=== PATIENT | female | born 1945 | race Caucasian/White ===

== ENCOUNTER 2024-11-12 13:38 | Outpatient (AMB) | payer MEDICARE, SELFPAY ==
--- OUTSIDE RECORDS SUMMARY | 2023-11-04 09:30 | XMS_ITS ---
Author Organization [facility], Address [address] [facility] [address] [place] [address] Care Team Providers Care Biometrics Technician Name Role Phone roberta daly Primary Care Provider Tammie Bond [phone] REASON FOR VISIT dementia Encounters Encounter Location Date Provider Diagnosis [facility], [address] [facility] [address] [place] [address] 11/04/2023 Tammie Delgadillo Plan Of Treatment No Information Progress Notes * Rylee ZAZUETAeDOB:[birth year] (79 yo F)Acc No.[id number]:11/04/2023 N60 Patient: Robert masseyCodi Provider: Tacos Delgadillo NP :1945 A ge:78 Y S ex:Female Date:11/04/2023 Address:[address] [place] [address] [id number] Pcp:roberta daly Subjective: * Chief Complaints: * D ementia * Electronic signature of Hero Delgadillo NP on 11/12/2024 at 02:55 PM EDT Sign off status: Pending * Provider: Tacos Delgadillo NP Date: 11/04/2023 Generated for Lotus [place]/Chen/eTransmitting on: 0 11/12/2024 02:55 PM EDT
--- OUTSIDE RECORDS SUMMARY | 2024-06-07 09:30 | XMS_ITS ---
Author Organization [facility], Address [address] [address] Care Team Providers Care Dependency Program Director Name Role Phone roberta daly Primary Care Provider Tammie Bond Unavailable [phone] Allergies Allergen (clinical drug ingredient) Drug/Non Drug Allergy documented on EMR Reaction Allergy Type Onset Date Status rosuvastatin cognitive impairment Drug Allergy Active penicillin V penicillin V potassium Unknown Drug Allergy Active REASON FOR VISIT Dementia/Alzheimers/discuss infusion- see Dr. Taylor also, Former Neurologist?, any Imaging?MR Brain pg 54,61 in chart Medications Medication SIG (Take, Route, Frequency, Duration) Notes Start Date End Date Status Vitamin D3 25 mcg tablet 1 tab(s) orally once a day; Duration: 30 days 05/24/2024 Active ramipril 10 mg capsule TAKE ONE CAPSULE BY MOUTH EVERY DAY; Duration: 90 Days Active meloxicam 15 mg tablet ; Duration: 30 Days Active donepezil 10 mg tablet 1 tab(s) orally o nce a day (at bedtime) Active traZODone 50 mg tablet as directed orally Active Social History Tobacco Use: Social History Observation Description Date Details (start date - stop date) Never Smoker NA - NA Social History General Social Info Question Answer Notes Tobacco Use: Do you smoke? never smoker Additional Details Category Social Info Options Details General Occupation: retired Alcohol: yes daily Caffeine: 2, cup(s) per da y Children: 2 Marital Status: Encounters Encounter Location Date Provider Diagnosis [facility], [address] [address] 06/07/2024 Tammie Delgadillo Plan Of Treatment No Information Progress Notes * Rylee ZAZUETAeDOB:[birth year] (79 yo F)Acc No.[id number]:06/07/2024 N60 Patient: Codi Garay Provider: Tacos Delgadillo NP :1945 A ge:79 Y S ex:Female Date:06/07/2024 Address:[address] [place] [address], [id number] Pcp:roberta daly Subjective: * Chief Complaints: * D ementia/Alzheimers/discuss infusion- see Dr. Taylor alsoFormer Neurologist?any Imaging?MR Brain pg 54,61 in chart * ROS: 1 0 systems including constitutional, neurological, eyes, ENT, cardiovascular, respiratory, GI, , musculoskeletal, and skin were reviewed. Negative unless otherwise specified in HPI. * Medical History: Hyperparathyroidism Hypothyroidism Spinal stenosis Osteoporosis Benign neoplasm of parathyroid gland Kidney disease Vascular dementia Medical History Verified * Surgical History: parathyroidectomy 2009 lumbar fusion 2016 cataract eye surgery lens implants Section x2 thyroid biopsy cervical discectomy 2022 Surgical History verified. * Hospitalization/Major Diagno stic Procedure: chest pain 06/09 Hospitalization Verified. * Family History: F ather: 60 yrs, diagnosed with Stroke. M other: 88 yrs, Heart attack, breast cancer, diagnosed with Cancer. 1 sister(s) . 2 son(s) . . F amily History Verified..? Any family hx of Neurological disorders?. * Social History: G eneral: T obacco Use D o you smoke? n ever smoker. A lcohol: yes daily. Marital Status: . Caffeine: 2, cup(s) per day. Occupation: retired. Children: 2. Social History Verified. * Medications: T akingmeloxicam 15 mg tablet ramipril 10 mg capsule TAKE ONE CAPSULE BY MOUTH EVERY DAY Vitamin D3(cholecalciferol) 25 mcg tablet 1 tab(s) orally once a day donepezil 10 mg tablet 1 tab(s) orally once a day (at bedtime) traZODone 50 mg tablet as directed orally Taking meloxicam 15 mg tablet Taking ramipril 10 mg capsule TAKE ONE CAPSULE BY MOUTH EVERY DAY Taking Vitamin D3(cholecalciferol) 25 mcg tablet 1 tab(s) orally once a day Taking donepezil 10 mg tablet 1 tab(s) orally once a day (at bedtime) Taking traZODone 50 mg tablet as directed orally * Allergies: p enicillin V potassiumrosuvastatin: cognitive impairment - Side EffectsyesAllergies Verified. Billing Information: * Procedure Codes: * Electronic signature of Hero Delgadillo NP on 11/12/2024 at 02:54 PM EDT Sign off status: Pending * Provider: Tacos Delgadillo NP Date: 06/07/2024 Generated for Lotus [place]/Chen/Jade on: 0 11/12/2024 02:54 PM EDT
--- OUTSIDE RECORDS SUMMARY | 2024-10-24 04:00 | XMS_ITS ---
Author Organization Elsi Castellano MD Address [address] [place] [phone] Care Team Providers Care Air Intelligence Specialist Name Role Phone Elsi Castellano Primary Care Provider REASON FOR VISIT 3m f/u HTN Encounters Encounter Location Date Provider Diagnosis Elsi Castellano MD [address] [place] [facility] [address] [place] [id number] 10/24/2024 Elsi Castellano Plan Of Treatment Next Appt Details Provider Name:Elsi Castellano , 01/29/2025 10:45:00 AM, [address] [place] [address], [place] [address], [place], [place], [phone], Progress Notes * Rylee DUMONTeDOB:[birth year] (79 yo F)Acc No.[id number]:10/24/2024 Progress Notes Patient: Robert Codi FLORES Provider: Kenan Castellano MD :1945 A ge:79 Y S ex:Female Date:10/24/2024 Address:[address] [place] [id number] Structured Data:Care team Ri sk Stratification : Medium Low Risk Subjective: * Chief Complaints: * 1 . 3m f/u HTN. * Medical History: Objective: * Vitals: Past Vitals:* 10/15/2024 Temp:97.3F, HR:61/min, BP:Si tting Right Arm: 122/72mm Hg, Wt:103lbs, BMI:19.14Index, Ht:61.5in, Oxygen sat %:98% * 07/18/2024 Temp:96.9F, HR:67/min, BP:Si tting Right Arm: 132/64mm Hg, Wt:97lbs, BMI:18.03Index, Ht:61.5in, Oxygen sat %:98% * 06/12/2024 Temp:96.8F, HR:63/min, Wt:96 lbs, BMI:17.84Index, Ht:61.5in, Oxygen sat %:99% Assessment: Plan: * Treatment: * Images: Billing Information: * Visit Code: * Procedure Codes: * Electronic signature of Jeane Castellano MD on 11/12/2024 at 02:56 PM EDT Sign off status: Pending * Provider: Kenan Castellano MD Date: 10/24/2024 Generated for Lotus [place]/Chen/Jade on: 11/12/2024 02:56 PM EDT
--- OUTSIDE RECORDS SUMMARY | 2024-11-07 04:30 | XMS_ITS ---
Author Organization Elsi Castellano MD Address [address] [phone] Care Team Providers Care Commodity Broker Name Role Phone Elsi Castellano Primary Care Provider [phone] Allergies Allergen (clinical drug ingredient) Drug/Non Drug Allergy documented on EMR Reaction Allergy Type Onset Date Status penicillin V Penicillin V Potassium Unknown Drug Allergy Active rosuvastatin Rosuvastatin Cognitive Impairment Drug Allergy 12/09/2021 Active Results Component Value Reference Range Notes Thyroxine (T4) Free, Direct- [id number] Reviewed date:11/09/2024 01:23:06 PM Interpretation: Performing Lab:[facility], [address] [place] [address], Phone - [phone], Director - MDJodry Notes/Report: T4,Free(Direct) 1.07 0.82-1.77 ng/dL Urinalysis, Complete-[id number] Reviewed date:11/09/2024 01:23:06 PM Interpretation: Performing Lab:[facility], [address] [place] [address], Phone - [phone], Director - MDJodry Notes/Report: Specific [place] 1.019 1.005-1.030 pH 6.0 5.0-7.5 Urine-Color Yellow Yellow Appearance Clear Clear WBC Esterase Negative Negative Protein Trace Negative/Trace Glucose Negative Negative Ketones Negative Negative Occult Blood Negative Negative Bilirubin Negative Negative Urobilinogen,Semi-Qn 0.2 0.2-1.0 mg/dL Nitrite, Urine Negative Negative Microscopic Examination Micr oscopic follows if indicated. Microscopic Examination See below: Micr oscopic was indicated and was performed. WBC None seen 0 - 5 /hpf RBC 0-2 0 - 2 /hpf Epithelial Cells (non renal) 0-10 0 - 10 /hpf Casts None seen None seen /lpf Bacteria None seen None seen/Few [id number] Reviewed date:11/09/2024 01:23:06 PM Interpretation: Performing Lab:[facility], [address] [place] [address], Phone - [phone], Director - [facility] Notes/Report: TSH 0.459 0.450-4.500 uIU/mL Vitamin D, 26-Kkfwafq-[id number] Reviewed date:11/09/2024 01:23:06 PM Interpretation: Performing Lab:[facility] [address], Phone - [phone], Director - [facility] Notes/Report: Vitamin D, 25-Hydroxy 51.5 30.0-100.0 ng/mL Vitamin D deficiency has been defined by the [place] of [employer] and an Endocrine Society practice guideline as a level of serum 25-OH vitamin D less than 20 ng/mL (1,2). The Endocrine Society went on to further define vitamin D insufficiency as a level between 21 and 29 ng/mL (2). 1. IOM ([place] of [employer]). 2010. Dietary reference intakes for calcium and D. [place]: The National Academies Press. 2. Ashlee MF, Rohini NC, Woo ZULUAGA, et al. Evaluation, treatment, and prevention of vitamin D deficiency: an Endocrine Society clinical practice guideline. JCEM. 2010; 96(7):1911-30. Albumin/Creatinine Ratio,Uri ne-[id number] Reviewed date:11/09/2024 01:23:06 PM Interpretation: Performing Lab:[facility] [address], Phone - [phone], Director - [facility] Notes/Report: Creatinine, Urine 146.8 Not Estab. mg/dL Albumin, Urine 41.5 Not Estab. ug/mL Alb/Creat Ratio 28 0-29 mg/g creat Normal: 0 - 29 Moderately increased: 30 - 300 Severely increased: >300 Comp. Metabolic Panel (14)-[id number] Reviewed date:11/09/2024 01:23:06 PM Interpretation: Performing Lab:[facility], [address] [place] [address], [place], Phone - [phone], Director - Deborah Notes/Report: Glucose 86 70-99 mg/dL BUN 23 8-27 mg/dL Creatinine 0.97 0.57-1.00 mg/dL eGFR 60 >59 mL/min/1.73 BUN/Creatinine Ratio 24 12-28 Sodium 142 134-144 mmol/L Potassium 4.0 3.5-5.2 mmol/L Chloride 103 96-106 mmol/L Carbon Dioxide, Total 20 20-29 mmol/L Calcium 10.1 8.7-10.3 mg/dL Protein, Total 7.4 6.0-8.5 g/dL Albumin 4.6 3.8-4.8 g/dL Globulin, Total 2.8 1.5-4.5 g/dL Bilirubin, Total 0.4 0.0-1.2 mg/dL Alkaline Phosphatase 121 44-121 IU/L AST (SGOT) 36 0-40 IU/L ALT (SGPT) 31 0-32 IU/L REASON FOR VISIT 3m f/u HTN, Hypertension, Controlled Medications Medication SIG (Take, Route, Frequency, Duration) Notes Start Date End Date Status Rosuvastatin Calcium 10 MG TAKE ONE TABLET BY MOUTH THREE TIMES A WEEK; Duration: 70 Not-Taking traZODone HCl 50 MG Oral; Duration: 60 Days Active Ramipril 10 MG 1 capsule Orally Onc e a day; Duration: 90 days Active amLODIPine Besylate 5 MG 1 tablet Orally Once a day; Duration: 30 days 02/13/2024 Active Belsomra 15 MG 1 tablet at bedtime Orally Once a day; Duration: 30 days 08/03/2024 12/01/2024 Active Biotin Active Vitamin C Active Sleep Aid Active Donepezil HCl 10 MG Oral; Duration: 45 Days Active Vitamin D 1000 UNIT 3 capsule Orally Onc e a day Active Calcium Active Magnesium 500 MG 1 tablet with a meal Orally Once a day Active Problems Problem Type SNOMED Code ICD Code Onset Dates Problem Status W/U Status Risk Notes Problem Dementia (disorder) (04055907) Dementia in other diseases classified elsewhere, severe, without behavioral disturbance, psychotic disturbance, mood disturbance, and anxiety (F02.C0) Active confirmed Vital Signs Temperature 96.0 degrees Fahrenheit 11/08/19 25 Blood pressure systolic 126 mm Hg 11/08/19 25 Blood pressure diastolic 60 mm Hg 025 Heart Rate 62 /min 11/07/2024 Height 61.5 in 11/07/2024 Weight 103 lbs 11/07/2024 BMI 19.14 kg/m2 11/07/2024 Oximetry 98 % 11/07/2024 Encounters Encounter Location Date Provider Diagnosis Elsi Castellano MD [address] [phone] 11/07/2024 Elsi Castellano Hypertensive chronic kidney disease with stage 1 through stage 4 chronic kidney disease, or unspecified chronic kidney disease I12.9 ; Chronic kidney disease, stage 3a N18.31 ; Alzheimer's disease with late onset G30.1 ; Dementia in other diseases classified elsewhere, severe, without behavioral disturbance, psychotic disturbance, mood disturbance, and anxiety F02.C0 ; Vascular dementia, mild, without behavioral disturbance, psychotic disturbance, mood disturbance, and anxiety F01.A0 ; Age-related osteoporosis without current pathological fracture M81.0 ; Hypothyroidism, unspecified E03.9 ; Mixed hyperlipidemia E78.2 ; Other spondylosis with myelopathy, cervical region M47.12 ; Spinal stenosis, lumbar region with neurogenic claudication M48.062 ; Other intervertebral disc displacement, lumbar region M51.26 and Vitamin D deficiency, unspecified E55.9 Assessments Encounter Date Diagnosis (ICD Code) Assessment Notes Treatment Notes Treatment Clinical Notes Section Notes 11/07/2024 Hypertensive chronic kidney disease with stage 1 through stage 4 chronic kidney disease, or unspecified chronic kidney disease (ICD-10 - I12.9) Improved. Her blood pressure is still fair. It is not ideally under 120 but improved compared to the prior levels. Can continue current medical therapy and hopefully with treatment of her back pain and increase mobility she will have a little bit lower blood pressure with increased activity 11/07/2024 Chronic kidney disease, stage 3a (ICD-10 - N18.31) Stable with estimated GFR in the 50s. Continue control of comorbidity of hypertension 11/07/2024 Alzheimer's disease with late onset (ICD-10 - G30.1) Has been getting infusions for disease modification however according to the the infusions have been discontinued due to complications with Aria. 11/07/2024 Dementia in other diseases classified elsewhere, severe, without behavioral disturbance, psychotic disturbance, mood disturbance, and anxiety (ICD-10 - F02.C0) As above 11/07/2024 Vascular dementia, mild, without behavioral disturbance, psychotic disturbance, mood disturbance, and anxiety (ICD-10 - F01.A0) Stable and unchanged. Continue control of comorbidity of hypertension. 11/07/2024 Age-related osteoporosis without current pathological fracture (ICD-10 - M81.0) She does not recall her last visit with endocrine. Status unclear 11/07/2024 Hypothyroidism, unspecified (ICD-10 - E03.9) Stable on prior labs as reviewed. Can recheck status 11/07/2024 Mixed hyperlipidemia (ICD-10 - E78.2) Stable on prior labs as reviewed. Can recheck status. Her LDL is overall 100. However risk-benefit ratio needs to be evaluated to see if combination drug therapy would be of any benefit to her given her other comorbidities 11/07/2024 Other spondylosis with myelopathy, cervical region (ICD-10 - M47.12) Stable at present. She did have a fall yet last week. She fell backwards and she thinks it there is because her hand slipped on the handrail rather than the cervical stenosis being responsible for this. She did not think that it was a loss of strength in her legs. At this point she just needs to be aware that the spinal stenosis and cord compression and myelomalacia may cause frequent and recurrent falls. If this happens then she will need reevaluation to see if surgical decompression is warranted 11/07/2024 Spinal stenosis, lumbar region with neurogenic claudication (ICD-10 - M48.062) She just had her injection yesterday and according to the she may be moving a little bit better. Can continue periodic injections and if these are not helpful then would need to consider surgical decompression 11/07/2024 Other intervertebral disc displacement, lumbar region (ICD-10 - M51.26) As above 11/07/2024 Vitamin D deficiency, unspecified (ICD-10 - E55.9) Fair control and prior labs as reviewed. Continue vitamin D supplementation 11/07/2024 Other This note was created with voice dictation recognition software and may contain errors of grammar and syntax. Also labs were reviewed with patient. Plan Of Treatment Next Appt Details Follow Up: 3 Months, Reason: Annual Provider Name:Elsi Castellano , 01/29/2025 10:45:00 AM, [address], [address], [place], [place], [phone], Progress Notes * Rylee DUMONTeDOB:[birth year] (79 yo F)Acc No.[id number]:11/07/2024 Progress Notes Patient: Codi PAYTON Provider: Kenan Castellano MD :1945 A ge:79 Y S ex:Female Date:11/07/2024 Address:[address] [place], [place] [id number] Structured Data:Care team Sudeep stallings Stratification : Medium Low Risk Subjective: * Chief Complaints: * 3 m f/u HTNHypertension, Controlled * HPI: H ypertension: 79 year old female presents with c/o Patient presents for follow-up of hypertension w hich is long-standing. C hronic kidney disease: Classification of renal failure is S tage 3. Glomerular filtration rate 2 4HR Urine calculated at: 42.? * Medical History: * Surgical History: P arathyroidectomy 12/19/2009lumbar fusion, L3-L4 04/07/2016cataract-lens implants Thyroid Biopsy 2019Cesarean Section 07/1973cesarean section 01/1976Anterior Discectomy, Cervical 05/2022 * Hospitalization/Major Diagno stic Procedure: C hest Pain 05/2021 * Family History: S pouse: alive 79 yrs, Healthy. F ather: , Stroke. at 60. M other: , Heart attack, breast cancer. at 88. S on(s): alive 49 yrs, Healthy1 son alive healthy 1977. S iblings: alive 83 yrs, Hypertension. M aternal aunt: 2 Aunts breast cancer 3 other Aunt Healthy. 1 sister(s) . 2 son(s) - healthy. . (AWV) Family history verified no changes since last. * Social History: T obacco Use: T obacco Control (Standard) T obacco use:: Nonsmoker.? D rugs/Alcohol: D rugs H ave you used drugs other than those for medical reasons in the past 12 months? N o Caffeine I ntake: 1 -2 cups per day Do you smoke marijuana?: Denies. Do you drink alcohol?: Yes., Daily. M iscellaneous: E xercise: yes, yoga. Occupation: Retired Physical Therapist. H ousg: Prabhu Arreola arital status: m arried D rug/Alcohol: A JONO-C (Standard) D id you have a drink containing alcohol in the past year?: Yes, How often did you have six or more drinks on one occasion in the past year?: Never (0 point), How many drinks did you have on a typical day when you were drinking in the past year?: 1 or 2 drinks (0 point), How often did you have a drink containing alcohol in the past year?: Daily or almost daily (4 points), Points: 4, Interpretation: Positive. * Medications: T akingMagnesium 500 MG Tablet 1 tablet with a meal Orally Once a day Calcium Vitamin D 1000 UNIT Capsule 3 capsule Orally Once a day Biotin Vitamin C Sleep Aid Donepezil HCl 10 MG Tablet Oral traZODone HCl 50 MG Tablet Oral Ramipril 10 MG Capsule 1 capsule Orally Once a day amLODIPine Besylate 5 MG Tablet 1 tablet Orally Once a day Belsomra 15 MG Tablet 1 tablet at bedtime Orally Once a day , stop date 12/01/2024Taking Magnesium 500 MG Tablet 1 tablet with a meal Orally Once a day Taking Calcium Taking Vitamin D 1000 UNIT Capsule 3 capsule Orally Once a day Taking Biotin Taking Vitamin C Taking Sleep Aid Taking Donepezil HCl 10 MG Tablet Oral Taking traZODone HCl 50 MG Tablet Oral Taking Ramipril 10 MG Capsule 1 capsule Orally Once a day Taking amLODIPine Besylate 5 MG Tablet 1 tablet Orally Once a day Taking Belsomra 15 MG Tablet 1 tablet at bedtime Orally Once a day , stop date 12/01/2024Not-Taking/PRNRosuvastatin Calcium 10 MG Tablet TAKE ONE TABLET BY MOUTH THREE TIMES A WEEK Medication List reviewed and reconciled with the patientNot-Taking/PRN Rosuvastatin Calcium 10 MG Tablet TAKE ONE TABLET BY MOUTH THREE TIMES A WEEK Medication List reviewed and reconciled with the patient * Allergies: P enicillin V PotassiumRosuvastatin: Cognitive Impairment - Side Effects - Criticality Low - Onset Date 12/09/2021no[Allergies Verified] Objective: * Vitals: T emp:96.0F, HR:62/min, BP:Standing Right Arm: 126/60mm Hg, Wt:103lbs, BMI:19.14Index, Ht:61.5in, Oxygen sat %:98%. Past Vitals:* 10/15/2024 Temp:97.3F, HR:61/min, BP:Si tting Right Arm: 122/72mm Hg, Wt:103lbs, BMI:19.14Index, Ht:61.5in, Oxygen sat %:98% * 07/18/2024 Temp:96.9F, HR:67/min, BP:Si tting Right Arm: 132/64mm Hg, Wt:97lbs, BMI:18.03Index, Ht:61.5in, Oxygen sat %:98% * 06/12/2024 Temp:96.8F, HR:63/min, Wt:96 lbs, BMI:17.84Index, Ht:61.5in, Oxygen sat %:99% * P ast Orders: Lab:Comp. Metabolic Panel (1 4)-[id number] * Collection Date 04/02/2024 02/13/2024 Collection Time 11:11 AM 11:26 AM Order Date 04/02/2024 02/13/2024 Glucose 90 (Ref Range: 70-99 mg/dL) 86 (Ref Range: 70-99 mg/dL) BUN 19 (Ref Range: 8-27 mg/dL) 21 (Ref Range: 8-27 mg/dL) Creatinine 1.00 (Ref Range: 0.57-1.00 mg/dL) 1.04 H (Ref Range: 0.57-1.00 mg/dL) BUN/Creatinine Ratio 19 (Ref Range: 12-28) 20 (Ref Range: 12-28) Sodium 140 (Ref Range: 134-144 mmol/L) 141 (Ref Range: 134-144 mmol/L) Potassium 4.5 (Ref Range: 3.5-5.2 mmol/L) 4.7 (Ref Range: 3.5-5.2 mmol/L) Chloride 103 (Ref Range: 96-106 mmol/L) 105 (Ref Range: 96-106 mmol/L) Carbon Dioxide, Total 24 (Ref Range: 20-29 mmol/L) 23 (Ref Range: 20-29 mmol/L) Calcium 9.4 (Ref Range: 8.7-10.3 mg/dL) 9.8 (Ref Range: 8.7-10.3 mg/dL) Protein, Total 6.7 (Ref Range: 6.0-8.5 g/dL) 6.5 (Ref Range: 6.0-8.5 g/dL) Albumin 4.5 (Ref Range: 3.8-4.8 g/dL) 4.2 (Ref Range: 3.8-4.8 g/dL) Globulin, Total 2.2 (Ref Range: 1.5-4.5 g/dL) 2.3 (Ref Range: 1.5-4.5 g/dL) Bilirubin, Total 0.7 (Ref Range: 0.0-1.2 mg/dL) 0.6 (Ref Range: 0.0-1.2 mg/dL) Alkaline Phosphatase 83 (Ref Range: 44-121 IU/L) 83 (Ref Range: 44-121 IU/L) AST (SGOT) 33 (Ref Range: 0-40 IU/L) 41 H (Ref Range: 0-40 IU/L) ALT (SGPT) 21 (Ref Range: 0-32 IU/L) 34 H (Ref Range: 0-32 IU/L) eGFR 58 L (Ref Range: >59 mL/min/1.73) 55 L (Ref Range: >59 mL/min/1.73) ???Lab:Vitamin [id number] (Order Date - 04/02/2024) (Collection Date & Time - 04/02/2024 11:11 AM)?ValueReference Range?Vitamin [id number] - pg/mL ???Lab:Thyroxine (T4) Free, Direct-[id number] (Order Date - 04/02/2024) (Collection Date & Time - 04/02/2024 11:11 AM)?ValueReference Range ?T4,Free(Direct)1.270.82-1.77 - ng/dL ???Lab:Folate (Folic Acid), Serum-[id number] (Order Date - 04/02/2024) (Collection Date & Time - 04/02/2024 11:11 AM)?ValueReference Range?Folate (Folic Acid), Serum8.8>3.0 - ng/mL ???Lab:TSH-[id number] (Order Date - 04/02/2024) (Collection Date & Time - 04/02/2024 11:11 AM)?ValueReference Range?TSH2.1000.450-4.500 - uIU/mL ???Lab:Vitamin D, 47-Bimgjeu-[id number] (Order Date - 04/02/2024) (Collection Date & Time - 1:11 AM)?ValueReference Range?Vitamin D, 25-Hcphusn05.6L30.0-100.0 - ng/mL * Lab:Urinalysis, Complete-003 772 * Collection Date 04/02/2024 02/13/2024 Collection Time 11:11 AM 11:26 AM Order Date 04/02/2024 02/13/2024 Specific [place] 1.022 (Ref Range: 1.005-1.030) 1.023 (Ref Range: 1.005-1.030) pH 6.0 (Ref Range: 5.0-7.5) 5.5 (Ref Range: 5.0-7.5) Urine-Color Yellow (Ref Range: Yellow) Yellow (Ref Range: Yellow) Appearance Clear (Ref Range: Clear) Clear (Ref Range: Clear) WBC Esterase Negative (Ref Range: Negative) Negative (Ref Range: Negative) Protein Trace (Ref Range: Negative/Trace) Trace (Ref Range: Negative/Trace) Glucose Negative (Ref Range: Negative) Negative (Ref Range: Negative) Ketones Negative (Ref Range: Negative) Negative (Ref Range: Negative) Occult Blood Negative (Ref Range: Negative) Negative (Ref Range: Negative) Bilirubin Negative (Ref Range: Negative) Negative (Ref Range: Negative) Urobilinogen,Semi-Qn 0.2 (Ref Range: 0.2-1.0 mg/dL) 0.2 (Ref Range: 0.2-1.0 mg/dL) Nitrite, Urine Negative (Ref Range: Negative) Negative (Ref Range: Negative) WBC None seen (Ref Range: 0 - 5 /hpf) 0-5 (Ref Range: 0 - 5 /hpf) RBC None seen (Ref Range: 0 - 2 /hpf) 0-2 (Ref Range: 0 - 2 /hpf) Epithelial Cells (non renal) None seen (Ref Range: 0 - 10 /hpf) 0-10 (Ref Range: 0 - 10 /hpf) Casts None seen (Ref Range: None seen /lpf) None seen (Ref Range: None seen /lpf) Bacteria None seen (Ref Range: None seen/Few) None seen (Ref Range: None seen/Few) Microscopic Examination See below: See below: * Lab:Albumin/Creatinine Ratio ,Urine-[id number] * Collection Date 04/02/2024 02/13/2024 Collection Time 11:11 AM 11:26 AM Order Date 04/02/2024 02/13/2024 Creatinine, Urine 103.1 (Ref Range: Not Estab. mg/dL) 111.2 (Ref Range: Not Estab. mg/dL) Albumin, Urine 23.3 (Ref Range: Not Estab. ug/mL) 31.0 (Ref Range: Not Estab. ug/mL) Alb/Creat Ratio 23 (Ref Range: 0-29 mg/g creat) 28 (Ref Range: 0-29 mg/g creat) * Lab:COMPLETE CBC WITH DIFF * Collection Date 03/29/2023 11/10/2022 09/20/2022 Collection Time 11:27 AM 09:30 AM 09:25 AM 11:22 AM Order Date 03/29/2023 11/10/2022 09/02/2022 03/23/2022 WBC 6.8 (Ref Range: (4.0-11.0) K/MM3) 5.3 (Ref Range: (4.0-11.0) K/MM3) 6.4 (Ref Range: (4.0-11.0) K/MM3) 6.0 (Ref Range: (4.0-11.0) K/MM3) RBC 4.32 (Ref Range: (4.20-5.40) M/MM3) 4.16 L (Ref Range: (4.20-5.40) M/MM3) 4.16 L (Ref Range: (4.20-5.40) M/MM3) 4.28 (Ref Range: (4.20-5.40) M/MM3) HGB 13.0 (Ref Range: (11.7-15.5) GM/DL) 12.7 (Ref Range: (11.7-15.5) GM/DL) 12.5 (Ref Range: (11.7-15.5) GM/DL) 12.9 (Ref Range: (11.7-15.5) GM/DL) HCT 40.4 (Ref Range: (35.7-45.8) %) 39.6 (Ref Range: (35.7-45.8) %) 39.9 (Ref Range: (35.7-45.8) %) 40.8 (Ref Range: (35.7-45.8) %) MCV 93.5 (Ref Range: (80.0-100.0) FL) 95.2 (Ref Range: (80.0-100.0) FL) 95.9 (Ref Range: (80.0-100.0) FL) 95.3 (Ref Range: (80.0-100.0) FL) MCH 30.1 (Ref Range: (27.0-34.0) PG) 30.5 (Ref Range: (27.0-34.0) PG) 30.0 (Ref Range: (27.0-34.0) PG) 30.1 (Ref Range: (27.0-34.0) PG) MCHC 32.2 L (Ref Range: (33.0-37.0) g/dL) 32.1 L (Ref Range: (33.0-37.0) g/dL) 31.3 L (Ref Range: (33.0-37.0) g/dL) 31.6 L (Ref Range: (33.0-37.0) g/dL) MPV 10.3 (Ref Range: (9.4-12.4) FL) 9.3 L (Ref Range: (9.4-12.4) FL) 9.9 (Ref Range: (9.4-12.4) FL) 10.0 (Ref Range: (9.4-12.4) FL) RDW-SD 44.5 (Ref Range: (<47.0) FL) 47.8 H (Ref Range: (<47.0) FL) 51.5 H (Ref Range: (<47.0) FL) 50.1 H (Ref Range: (<47.0) FL) ABS. NRBC 0.0 (Ref Range: K/MM3) 0.0 (Ref Range: K/MM3) 0.0 (Ref Range: K/MM3) 0.0 (Ref Range: K/MM3) Imm Gran 0.3 (Ref Range: %) 0.8 (Ref Range: %) 0.5 (Ref Range: %) 0.3 (Ref Range: %) Abs. Imm Gran 0.0 (Ref Range: K/MM3) 0.0 (Ref Range: K/MM3) 0.0 (Ref Range: K/MM3) 0.0 (Ref Range: K/MM3) PLT 242 (Ref Range: (150-460) K/MM3) 239 (Ref Range: (150-460) K/MM3) 240 (Ref Range: (150-460) K/MM3) 252 (Ref Range: (150-460) K/MM3) AUTOMATED NRBC 0.0 (Ref Range: #/100 WBC'S) 0.0 (Ref Range: #/100 WBC'S) 0.0 (Ref Range: #/100 WBC'S) 0.0 (Ref Range: #/100 WBC'S) NEUT 70.7 (Ref Range: (44-76) %) 54.0 (Ref Range: (44-76) %) 57.7 (Ref Range: (44-76) %) 62.3 (Ref Range: (44-76) %) LYMPH 19.9 (Ref Range: (15-43) %) 28.9 (Ref Range: (15-43) %) 25.5 (Ref Range: (15-43) %) 25.0 (Ref Range: (15-43) %) MONOCYTE 6.9 (Ref Range: (4.5-10.5) %) 10.7 H (Ref Range: (4.5-10.5) %) 11.9 H (Ref Range: (4.5-10.5) %) 8.4 (Ref Range: (4.5-10.5) %) EO 1.5 (Ref Range: (0-6) %) 4.7 (Ref Range: (0-6) %) 3.8 (Ref Range: (0-6) %) 3.0 (Ref Range: (0-6) %) LYMPH # 1.4 (Ref Range: (0.8-3.1) K/MM3) 1.5 (Ref Range: (0.8-3.1) K/MM3) 1.6 (Ref Range: (0.8-3.1) K/MM3) 1.5 (Ref Range: (0.8-3.1) K/MM3) BASO 0.7 (Ref Range: (0-2) %) 0.9 (Ref Range: (0-2) %) 0.6 (Ref Range: (0-2) %) 1.0 (Ref Range: (0-2) %) MONO# 0.5 (Ref Range: (0.4-0.9) K/MM3) 0.6 (Ref Range: (0.4-0.9) K/MM3) 0.8 (Ref Range: (0.4-0.9) K/MM3) 0.5 (Ref Range: (0.4-0.9) K/MM3) NEUT # 4.8 (Ref Range: (1.3-7.0) K/MM3) 2.9 (Ref Range: (1.3-7.0) K/MM3) 3.7 (Ref Range: (1.3-7.0) K/MM3) 3.8 (Ref Range: (1.3-7.0) K/MM3) EO # 0.1 (Ref Range: (0.0-0.4) K/MM3) 0.3 (Ref Range: (0.0-0.4) K/MM3) 0.2 (Ref Range: (0.0-0.4) K/MM3) 0.2 (Ref Range: (0.0-0.4) K/MM3) BASO # 0.1 (Ref Range: (0.0-0.1) K/MM3) 0.1 (Ref Range: (0.0-0.1) K/MM3) 0.0 (Ref Range: (0.0-0.1) K/MM3) 0.1 (Ref Range: (0.0-0.1) K/MM3) * Lab:LIPID PANEL W REFLEX TO DLDL * Collection Date 03/30/2023 09/20/2022 03/23/2022 Collection Time 08:55 AM 09:24 AM 11:22 AM 03:20 PM Order Date 03/30/2023 09/02/2022 03/23/2022 08/20/2021 LDL CHOLESTEROL, CALCULAT 91 (Ref Range: (0-130) MG/DL) 122 (Ref Range: (0-130) MG/DL) 126 (Ref Range: (0-130) MG/DL) 70 (Ref Range: (0-130) MG/DL) CHOLESTEROL, TOTAL 210 H (Ref Range: (<200) MG/DL) 241 H (Ref Range: (<200) MG/DL) 239 H (Ref Range: (<200) MG/DL) 190 (Ref Range: (<200) MG/DL) HDL CHOL 102 (Ref Range: (>39) MG/DL) 96 (Ref Range: (>39) MG/DL) 99 (Ref Range: (>39) MG/DL) 102 (Ref Range: (>39) MG/DL) NON HDL CHOLESTEROL (CALC 108 (Ref Range: (<160) MG/DL) 145 (Ref Range: (<160) MG/DL) 140 (Ref Range: (<160) MG/DL) 88 (Ref Range: (<160) MG/DL) TRIGLYCERIDES 86 (Ref Range: (<150) MG/DL) 115 (Ref Range: (<150) MG/DL) 71 (Ref Range: (<150) MG/DL) 89 (Ref Range: (<150) MG/DL) CHOLESTEROL/HDL RATIO (CA 2.1 (Ref Range: (<5.0)) 2.5 (Ref Range: (<5.0)) 2.4 (Ref Range: (<5.0)) 1.9 (Ref Range: (<5.0)) * Examination: G eneral Examination: GENERAL APPEARANCE: A ge appropriate, in no acute distress, thin. HEAD: atraumatic, normocephalic. EYES: sclera anicteric, extraocular movement full and smooth. HEART: r egular rate and rhythm, S1, S2 normal. LUNGS: c lear to auscultation bilaterally. EXTREMITIES: n o clubbing, cyanosis, or edema. NEUROLOGIC: a lert and oriented,gait Hunched forward as she walks. PSYCH: good eye contact, speech clear. ? Assessment: * Assessment: 1. H ypertensive chronic kidney disease with stage 1 through stage 4 chronic kidney disease, or unspecified chronic kidney disease - I12.9 (Primary) 2 . C hronic kidney disease, stage 3a - N18.31 3 . A lzheimer's disease with late onset - G30.1 4 . D ementia in other diseases classified elsewhere, severe, without behavioral disturbance, psychotic disturbance, mood disturbance, and anxiety - F02.C0 5 . V ascular dementia, mild, without behavioral disturbance, psychotic disturbance, mood disturbance, and anxiety - F01.A0 6 . A ge-related osteoporosis without current pathological fracture - M81.0 7 . H ypothyroidism, unspecified - E03.9 8 . M ixed hyperlipidemia - E78.2 9 . O ther spondylosis with myelopathy, cervical region - M47.12 1 0. S aguilar stenosis, lumbar region with neurogenic claudication - M48.062 1 1. O ther intervertebral disc displacement, lumbar region - M51.26 & #160; 1 2. V itamin D deficiency, unspecified - E55.9 Plan: * Treatment: Value Reference Range S pecific [place] 1.019 1.005-1.030 - * p H 6.0 5.0-7.5 - * U rine-Color Yellow Yellow - * A ppearance Clear Clear - * W BC Esterase Negative Negative - * P rotein Trace Negative/Trace - * G lucose Negative Negative - * K etones Negative Negative - * O ccult Blood Negative Negative - * B ilirubin Negative Negative - * U robilinogen,Semi-Qn 0.2 0.2-1.0 - mg/dL * N itrite, Urine Negative Negative - * W BC None seen 0 - 5 - /hpf * R BC 0-2 0 - 2 - /hpf * E pithelial Cells (non renal) 0-10 0 - 10 - /hp f * C asts None seen None seen - /lpf * B acteria None seen None seen/Few - * M icroscopic Examination See below: - * This lab was reviewed by Joel Castellano on 11/09/2024 at 13:23 PM EDT ?LAB: Albumin/Creatinine Ratio,[id number]* Value Reference Range C reatinine, Urine 146.8 Not Estab. - mg/dL * A lbumin, Urine 41.5 Not Estab. - ug/mL * A lb/Creat Ratio 28 0-29 - mg/g creat * This lab was reviewed by Joel Castellano on 11/09/2024 at 13:23 PM EDT ?LAB: Comp. Metabolic Panel ([id number]* Value Reference Range G lucose 86 70-99 - mg/dL * B UN 23 8-27 - mg/dL * C reatinine 0.97 0.57-1.00 - mg/dL * B UN/Creatinine Ratio 24 12-28 - * S odium 142 134-144 - mmol/L * P otassium 4.0 3.5-5.2 - mmol/L * C hloride 103 96-106 - mmol/L * C arbon Dioxide, Total 20 20-29 - mmol/L * C alcium 10.1 8.7-10.3 - mg/dL * P rotein, Total 7.4 6.0-8.5 - g/dL * A lbumin 4.6 3.8-4.8 - g/dL * G lobulin, Total 2.8 1.5-4.5 - g/dL * B ilirubin, Total 0.4 0.0-1.2 - mg/dL * A lkaline Phosphatase 121 44-121 - IU/L * A ST (SGOT) 36 0-40 - IU/L * A LT (SGPT) 31 0-32 - IU/L * e GFR 60 >59 - mL/min/1.73 * This lab was reviewed by Joel Castellano on 11/09/2024 at 13:23 PM EDT Clinical Notes: Improved. Her blood pressure is still fair. It is not ideally under 120 but improved compared to the prior levels. Can continue current medical therapy and hopefully with treatment ofher back pain and increase mobility she will have a little bit lower blood pressure with increased a ctivity??2.?Chronic kidney disease, stage 3a?LAB: Urinalysis, Complete-[id number]* Value Reference Range S pecific [place] 1.019 1.005-1.030 - * p H 6.0 5.0-7.5 - * U rine-Color Yellow Yellow - * A ppearance Clear Clear - * W BC Esterase Negative Negative - * P rotein Trace Negative/Trace - * G lucose Negative Negative - * K etones Negative Negative - * O ccult Blood Negative Negative - * B ilirubin Negative Negative - * U robilinogen,Semi-Qn 0.2 0.2-1.0 - mg/dL * N itrite, Urine Negative Negative - * W BC None seen 0 - 5 - /hpf * R BC 0-2 0 - 2 - /hpf * E pithelial Cells (non renal) 0-10 0 - 10 - /hp f * C asts None seen None seen - /lpf * B acteria None seen None seen/Few - * M icroscopic Examination See below: - * This lab was reviewed by Joel Castellano on 11/09/2024 at 13:23 PM EDT ?LAB: Albumin/Creatinine Ratio,Urine-[id number]* Value Reference Range C reatinine, Urine 146.8 Not Estab. - mg/dL * A lbumin, Urine 41.5 Not Estab. - ug/mL * A lb/Creat Ratio 28 0-29 - mg/g creat * This lab was reviewed by Joel Castellano on 11/09/2024 at 13:23 PM EDT ?LAB: Comp. Metabolic Panel ([id number]* Value Reference Range G lucose 86 70-99 - mg/dL * B UN 23 8-27 - mg/dL * C reatinine 0.97 0.57-1.00 - mg/dL * B UN/Creatinine Ratio 24 12-28 - * S odium 142 134-144 - mmol/L * P otassium 4.0 3.5-5.2 - mmol/L * C hloride 103 96-106 - mmol/L * C arbon Dioxide, Total 20 20-29 - mmol/L * C alcium 10.1 8.7-10.3 - mg/dL * P rotein, Total 7.4 6.0-8.5 - g/dL * A lbumin 4.6 3.8-4.8 - g/dL * G lobulin, Total 2.8 1.5-4.5 - g/dL * B ilirubin, Total 0.4 0.0-1.2 - mg/dL * A lkaline Phosphatase 121 44-121 - IU/L * A ST (SGOT) 36 0-40 - IU/L * A LT (SGPT) 31 0-32 - IU/L * e GFR 60 >59 - mL/min/1.73 * This lab was reviewed by Joel Castellano on 11/09/2024 at 13:23 PM EDT Clinical Notes: Stable with estimated GFR in the 50s. Continue control of comorbidity of hypertension??3.?Alzheimer's disease with late onset? Clinical Notes: Has been getting infusions for disease modification however according to the the infusions have been discontinued due to complications with Aria.??4.?Dementia in other diseases classified elsewhere, severe, without behavioral disturbance, psychotic disturbance, mood disturbance, and anxiety? Clinical Notes: As above??5.?Vascular dementia, mild, without behavioral disturbance, psychotic disturbance, mood disturbance, and anxiety? Clinical Notes: Stable and unchanged. Continue control of comorbidity of hypertension.??6.?Age-related osteoporosis without current pathological fracture ? Clinical Notes: She does not recall her last visit with endocrine. Status unclear??7.?Hypothyroidism, unspecified?LAB: Thyroxine (T4) Free, Direct-[id number]* Value Reference Range T 4,Free(Direct) 1.07 0.82-1.77 - ng/dL * This lab was reviewed by Joel Castellano on 11/09/2024 at 13:23 PM EDT ?LAB: TSH-[id number]* Value Reference Range T SH 0.459 0.450-4.500 - uIU/mL * This lab was reviewed by Joel Castellano on 11/09/2024 at 13:23 PM EDT Clinical Notes: Stable on prior labs as reviewed. Can recheck status??8.?Mixed hyperlipidemia? Clinical Notes: Stable on prior labs as reviewed. Can recheck status. Her LDL is overall 100. However risk-benefit ratio needs to be evaluated to see if combination drug therapy would be of any benefit to her given her other comorbidities??9.?Other spondylosis with myelopathy, cervical region? Clinical Notes: Stable at present. She did have a fall yet last week. She fell backwards and she thinks it there is because her hand slipped on the handrail rather than the cervical stenosis being responsible for this. She did not think that it was a loss of strength in her legs. At this point she just needs to be aware that the spinal stenosis and cord compression and myelomalacia may cause frequent and recurrent falls. If this happens then she will need reevaluation to see if surgical decompression is warranted??10.?Spinal stenosis, lumbar region with neurogenic claudication? Clinical Notes: She just had her injection yesterday and according to the she may be movinga little bit better. Can continue periodic injections and if these are not helpful then would need to consider surgical decompression??11.?Other intervertebral disc displacement, lumbar region? Clinical Notes: As above??12.?Vitamin D deficiency, unspecified?LAB: Vitamin D, 59-Cunzila-[id number]* Value Reference Range V itamin D, 25-Hydroxy 51.5 30.0-100.0 - ng/mL * This lab was reviewed by Joel Castellano on 11/09/2024 at 13:23 PM EDT Clinical Notes: Fair control and prior labs as reviewed. Continue vitamin D supplementation? 13.?Others? Clinical Notes: This note was created with voice dictation recognition software and may contain errors of grammar and syntax. Also labs were reviewed with patient.?? * Procedure Codes: G 9744 PATIENT NOT ELIG D/T ACTIVE DX [id number] MOST RECENT SYSTOLIC BP < 140MM [id number] MOST RECENT DIASTOLIC BP < 90MM [id number] Pt scrn tbco id as non user * Preventive Medicine: Counseling: B Robert Management: LIFESTYLE RECOMMENDATION: Violeta chester education regarding hypertension PHYSICAL ACTIVITY RECOMMENDATION: Helena gomez encouragement to exercise Immunizations: T daP Last Tdap was administered 0 07/21/2012 P CV 13 (Prevnar) Last PCV13 was administered 0 10/31/2014 P PV 23 (pneumococcal) Last PPV23 was administered 1 05/10/2010 T etanus Last Tetanus was administered 0 06/11/2005 I nfluenza Last Influenza was administered 0 12/10/2022 Screenings: B reast Cancer Screening: Date of most recent screenin 11/14/2023 C olon cancer screening Colorectal screening: C olonoscopy Provider recommendation: 5 years Date of most recent screenin 05/18/2019 O steoporosis Screening: Date of most recent screenin 03/30/2022 * Follow Up: 3 Months (Reason: Annual) * Images: Billing Information: * Visit Code: 32347 Office Visit, Est Pt., Level 4. G2211 Complex E/M Visit. * Procedure Codes: G9744 PATIENT NOT ELIG D/T ACTIVE DX HTN. G8752 MOST RECENT SYSTOLIC BP < 140MM HG. G8754 MOST RECENT DIASTOLIC BP < 90MM HG. G9903 Pt scrn tbco id as non user. * Sign off status: Completed true * Provider: Kenan Castellano MD Date: 0 11/07/2024 Generated for Lotus [place]/Chen/eTransmitting on: 0 11/12/2024 02:55 PM EDT History and Physical Notes * HPI (History of Present Illness) Category Sub-Category Detail Notes Category Not es Hypertension Patient presents for follow-up of hypertension which is long-standing Chronic kidney disease Classification of renal failure is Stage 3 Glomerular filtration rate 24HR Urine ca lculated at: 42 Examination Category Sub-Category Detail Notes Category Not es General Examination GENERAL APPEARANCE: Age appr opriate, in no acute distress, thin HEAD: atraumatic, normocep halic EYES: sclera anicteric, ex traocular movement full and smooth HEART: regular rate and rhy thm, S1, S2 normal LUNGS: clear to auscultatio n bilaterally NEUROLOGIC: alert and oriented, gait Hunched forward as she walks EXTREMITIES: no clubbing, cyanosi s, or edema PSYCH: good eye contact, sp eech clear
--- NOTE | 2024-11-12 14:35 | A.SPINEOV_ITS ---
Vital Signs 11/12/24 14:39 Height 5 ft 2 in Weight 108 lb BMI 19.8 Intake Visit Reasons: Back pain Intake Note: Mrs. Dumont is here today c/o low back pain that radiates to the legs. Business Services Manager Required: No Allergies penicillin V Allergy (Verified 11/12/24 14:39) Unknown rosuvastatin Allergy (Verified 11/12/24 14:39) Unknown Assessment & Plan Assessment & Plan (1) Lumbago with sciatica, left side: Code(s): M54.42 - Lumbago with sciatica, left side Category: Medical Plan Codi is a pleasant 79 year old female who comes in today as a self referral. She reports that she was recommended to our office by 1 of her friends who had surgery with us in did very well afterwards. She states that she has had fairly severe low back pain and occasional left posterior thigh pain for the past 1 year. She does have a past pertinent medical history of a L3-[address] completed by Dr[address] Reaves at [facility]. She reports that thankfully, today, she has no low back pain and no leg pain. About 1 week ago she had a cortisone injection near L5, and reports almost complete resolution of her pain after this injection. She is very satisfied overall with the injection. Given this, prior to the injection she states that she had fairly severe axial low back pain which significantly worsened with ambulation. In addition to this she had a fairly severe shooting pain down her left lower extremity. Thankfully neither of these are present today as previously stated. She has been referred to physical therapy, however states she has not as of yet started. She reports that she does not presently take any pain control medications at home, but has utilized aakp-foa-nmcbsig pain medications in the past. She does report some numbness over her left toes, however reports that she is unsure if this is related to an underlying vascular issue which she has. It should be noted that the patient has a cognitive impairment which prevents thorough recount of PMHx. Her accompanied her to this visit today but also struggled to provide PMHx aside from informing me that the patient has hypertension. PMH: HTN, Hx of L3-[address] Reaves about 12 years ago. Hyperlipidemia. Social hx: Patient does not smoke, reports no substance use. Medications: See [employer] list. Allergies: NKDA Physical exam: The patient has full 5/5 strength of her upper and lower extremities. She ambulates well but does so slowly his slightly hunched over ambulating. She uses no assistive devices to ambulate. She has no significant sensational deficits reported on light touch examination. Her reflexes are 2+ intact diffusely. (-) bilateral straight leg raise (-) Carcamo's (-) clonus. Imaging review: MRI of the lumbar spine completed at [facility] 10/02/2024 shows evidence of previous fusion at L3-4. There is notable posterior disc bulging at L1-2, L2-3, and L4-5. At L1-2, and L2-3 there is severe central canal and bilat eral foraminal stenosis at L4-5 the disc herniation seen at this level his causing severe right-sided foraminal stenosis and moderate-severe right-sided central canal stenosis near the lateral recess. Impression: Codi is a pleasant 79-year-old female who comes in today for evaluation of axial low back pain and shooting pain into her left posterior lower extremity. Thankfully, she reports that her pain has essentially completely resolved since a injection near L5 completed at [facility] last week. Given this, she does have fairly severe degeneration and nerve compression above and below her surgical construct. I believe that the patient would be best served by continuing to pursue conservative measures via physical therapy and cortisone injections at this time . Even when considering the severe compression seen on imaging, the patient's clinical presentation today on examination does not appear to be reflective of this. In the absence of pain or neurological deficits, I think she should simply follow up with us again in the future if conservative measures fail to provide pain / symptom relief. We may consider surgical intervention if this becomes the case, but will need to obtain her PCP medical records if we do re-evalaute her. Thank you for allowing us to care for your patient. The total time spent with this visit with this patient was 45 minutes reviewing history, physical exam, MRI imaging review, and implementation of treatment plan or further diagnostic testing Jr Cote MD,PhD [facility] Coding Level of Care Code New Pt Level 4 (51115) Diagnoses Lumbago with sciatica, left side M54.42
[2024-11-12 14:39] VITALS: BMI 19.8
--- OUTSIDE RECORDS SUMMARY | 2024-11-12 14:55 | XMS_ITS | Encounter Summary ---
Author Organization [facility] Address [address] [place] [phone] Phone Care Team Providers Care Piping Drafter Name Role Phone Roberta Castellano MD Primary Care Provider [phone] Encounter Details Date Type Department Care Team (Late st Contact Info) Description 12/10/2019 Procedure Pass [address] [address] Social History Tobacco Use Types Packs/Day Years Used Date Smoking Tobacco: Former Cigarettes Q uit: 1980 Smokeless Tobacco: Never Alcohol Use Standard Drinks/Week Comments Yes 7 (1 standard drink = 0.6 oz pur e alcohol) Comments Unknown Sex and Gender Information Value Date Recorded Sex Assigned at Female 10/30/2019 8:50 AM EDT Legal Sex Female 10:31 AM EDT Gender Identity Female 10/30/2019 8:50 AM EDT Sexual Orientation Straight 10/30/2019 8: 50 AM EDT documented as of this encounter Plan of Treatment Upcoming Encounters Date Type Department Care Team (Late st Contact Info) Description 10/16/2024 Procedure Pass [facility] [address] [place] [address] 11/24/2024 11:00 AM EDT Appointment [facility] [address] [place] [address] Shelly Lee PA-C [address] [place] [address] [email or web address] 01/14/2025 9:00 AM EDT Telemedicine [facility] [place]rology [address] [place] [address], [address], [address] [place] [address] Ellen Valencia MD, PhD [address] [place] [phone] [email or web address] documented as of this encounter Visit Diagnoses Not on filedocumented in this encounter Care Teams Piping Drafter Relationship Specialty Start Date End Date Roberta Castellano MD [address] [place] [phone] [email or web address] PCP - General Internal Medicine 09/06/17 documented as of this encounter Additional Source Comments The information contained in this document represents components of the legal health record. It is not the complete legal health record.[facility]
--- OUTSIDE RECORDS SUMMARY | 2024-11-12 14:55 | XMS_ITS | Encounter Summary ---
Author Organization [facility] Address [address] [place] [phone] Phone Care Team Providers Care Clicking Machine Operator Name Role Phone Roberta Castellano MD Primary Care Provider Reason for Referral * - Closed Specialty Diagnoses / Procedures Referred By Norah dover Referred To Contact Radiology Diagnoses Nontoxic multinodular goiter Procedures US Thyroid Aspiration/FNA US Thyroid Biopsy Clay Sen DO Phone: tel: fax: [email or web address] Referral ID Status Reason Start Date Expiration Date Visits Re quested Visits Authorized [id number] Closed 12/10/2019 12/09/2020 1 1 Encounter Details Date Type Department Care Team (Latest Contact Info) Description 02/21/2020 Ancillary Orders [facility] [address] [place] [phone] Clay Sen DO [address] [place] [phone] [email or web address] Nontoxic multinodular goiter Social History Tobacco Use Types Packs/Day Years [...] st Contact Info) Description 10/16/2024 Procedure Pass [facility] [address] [place] [address] 11/24/2024 11:00 AM EDT Appointment [facility] [address] [place] [address] Shelly Lee PA-C [address] [place] [address] [email or web address] 01/14/2025 9:00 AM EDT Telemedicine [facility] [place] of [place] [address] [place] [address], [address] [place] [address] Ellen Valencia MD, PhD [address] [place] [phone] [email or web address] documented as of this encounter Results * US Thyroid Aspiration/FNA (12/26/2019 12:40 PM EDT) Narrative SYSTEMGENERATED, DOCUMENTATION - 02/21/2020 9:19 AM EST Performed by an lift mechanic with Intraprocedural Ultrasound images obtained for archival purposes. Please see N otes tab for findings and procedure details. us Clay Sen DO IMG IR NEURO Final Result documented in this encounter Visit Diagnoses Diagnosis Nontoxic multinodular goiter Nontoxic multinodular goiter documented in this encounter Care Teams Clicking Machine Operator Relationship Specialty Start Date End Date Roberta Castellano MD [address] [place] [phone] [email or web address] PCP - General Internal Medicine 09/06/17 documented as of this encounter Additional Source Comments The information contained in this document represents components of the legal health record. It is not the complete legal health record.[facility]
--- OUTSIDE RECORDS SUMMARY | 2024-11-12 14:55 | XMS_ITS | Patient Health Record ---
Author Organization Elsi Castellano MD Address [address] [place] [id number] Care Team Providers Care Green Marketing Specialist Name Role Phone Elsi Castellano Primary Care Provider Alessandra Pat Unavailable [phone] Allergies Allergen (clinical drug ingredient) Drug/Non Drug Allergy documented on EMR Reaction Allergy Type Onset Date Status penicillin V Penicillin V Potassium Unknown Drug Allergy Active rosuvastatin Rosuvastatin Cognitive Impairment Drug Allergy 12/09/2021 Active Results Component Value Reference Range Notes CT ABDOMEN PELVIS WO CONTRAS T Reviewed date:06/18/2024 04:47:18 PM Interpretation: Performing Lab: Notes/Report: Thyroxine (T4) Free, Direct- [id number] Reviewed date:11/09/2024 01:23:06 PM Interpretation: Performing Lab:[facility], [address] [facility], Phone - [phone], Director - Deborah Notes/Report: T4,Free(Direct) 1.07 0.82-1.77 ng/dL Urinalysis, Complete-[id number] Reviewed date:11/09/2024 01:23:06 PM Interpretation: Performing Lab:[facility], [address] [place] [address], Phone - [phone], Director - Deborah Notes/Report: Specific [place] 1.019 1.005-1.030 pH 6.0 5.0-7.5 Urine-Color Yellow [...] seen /lpf Bacteria None seen None seen/Few [id number] Reviewed date:11/09/2024 01:23:06 PM Interpretation: Performing Lab:[facility] [place], [address] [place] [address], Phone - [phone], Director - [facility] Notes/Report: TSH 0.459 0.450-4.500 uIU/mL Vitamin D, 00-[id number] Reviewed date:11/09/2024 01:23:06 PM Interpretation: Performing Lab:[facility] [place], [address] [place] [address], Phone - [phone], Director - [facility] Notes/Report: Vitamin D, 25-Hydroxy 51.5 30.0-100.0 ng/mL Vitamin D deficiency has been defined by the [place] of [employer] and an Endocrine Society practice guideline as a level of serum 25-OH vitamin D less than 20 ng/mL (1,2). The Endocrine Society went on to further define vitamin D insufficiency as a level between 21 and 29 ng/mL (2). 1. IOM ([place] of [employer]). 2010. Dietary reference intakes for calcium and D. [place]: The National Academies Press. 2. Ashlee MF, Rohini [place], Woo ZULUAGA, et al. Evaluation, treatment, and prevention of vitamin D deficiency: an Endocrine Society clinical practice guideline. JCEM. 2010; 96(7):1911-30. Albumin/Creatinine Ratio,Uri ne-[id number] Reviewed date:11/09/2024 01:23:06 PM Interpretation: Performing Lab:[facility] [place], [address] [place] [address], [place], Phone - [phone], Director - [facility] Notes/Report: Creatinine, Urine 146.8 Not Estab. mg/dL Albumin, Urine 41.5 Not Estab. ug/mL Alb/Creat Ratio 28 0-29 mg/g creat Normal: 0 - 29 Moderately increased: 30 - 300 Severely increased: >300 Comp. Metabolic Panel (14)-3 [id number] Reviewed date:11/09/2024 01:23:06 PM Interpretation: Performing Lab:[facility], [address], [place], Phone - [phone], Director - Deborah Notes/Report: Glucose 86 70-99 [...] 0-40 IU/L ALT (SGPT) 31 0-32 IU/L MR Lumbar Reviewed date:10/05/2024 03:42:09 PM Interpretation: Performing Lab: Notes/Report: Original Report EXAM: MRI LUMBAR SPINE WITHOUT CONTRAST CLINICAL INFORMATION: Lumbar spinal stenosis, neurogenic claudication. TECHNICAL INFORMATION: 1. Sagittal and axial T1. 2. Sagittal and axial T2. 3. Sagittal STIR. SEDATION: None. COMPARISON: No existing relevant imaging immediately accessible. INTERPRETATION: Distal cord maintains normal caliber and intrinsic signal, termination is at L1. There are no spinal canal collections or intradural masses. Lumbar dextroconvexity with L3-4 TLIF surgery. Ferromagnetic artifact of paired pedicle screws and interbody device in expected locations. Preserved vertebral vertebral body heights with prominent anterior discosteophyte at L4-5, lesser changes L3-4 through L1-2. There is 2-3 mm degenerative anterolisthesis at L2-3. No evidence of marrow replacing processes. L5-S1: Mild disc degeneration with posterior bulge, hypertrophy and mild left facet joint arthrosis. No significant spinal canal and mildly narrowed left neural foramen. No neural impingement. L4-5: Inferior adjacent segment. Severe disc degeneration with heterogeneous and cranially dissecting right subarticular 6 x 14 mm disc extrusion (axial images 27-28 series 8; sagittal image 9 series 5). Changes are compounded by ligamentous hypertrophy and mild facet joint arthrosis resulting in severe right subarticular recess and foraminal stenosis. Left neural foramen minimally narrowed. L3-4: Instrumented fusion surgery. Mineralization partially crossing endplates. Spinal canal widely patent. Disc osteophytic ridging mildly narrows left neural foramen and contacts of the left L3 dorsal ganglion. No significant neural compression. L2-3: Superior adjacent segment. Mild to moderate disc degeneration with grade I anterolisthesis, broad bulge, ligamentous hypertrophy and mild facet joint arthrosis resulting in severe trefoil and moderate left/mild right biforaminal narrowing. Exiting left L2 nerve contacted. L1-2: Mild-moderate disc degeneration with broad bulge, ligamentous hypertrophy and mild facet joint arthrosis resulting in severe spinal canal and mild biforaminal stenoses. Redundancy of cauda equina nerve roots above and below the level consistent with central canal advanced stenosis. T12-L1 through T10-11: Disc desiccation throughout with shallow bulges but no protrusions or significant stenosis. No prevertebral/paraspinous soft tissue masses or collections. Included pelvis intact and marrow signal normal. Superior portions of sacroiliac joints show no effusions, subarticular edema or sclerosis. CONCLUSION: 1. L2-3 (superior adjacent segment) and L1-2, severe spinal stenoses at both levels due to broad bulging discs and facet joint overgrowth. Left L3 dorsal ganglion abutted. 2. L4-5 (inferior adjacent segment), advanced disc degeneration with right subarticular 6 x 14 mm disc extrusion. Right subarticular recess and neural foramina severely narrowed with impinged right exiting L4/transiting L5 nerves. 3. L3-4 TLIF surgery with mild residual left foraminal narrowing and no significant spinal stenosis. No suspicious findings for pseudoarthrosis. 4. Mild bilateral L2-3, L3-4 and left L5-S1 facet joint arthrosis. Read by: Zach Madison M.D. Reviewed and Electronically Signed by: Zach Madison M.D. MR BRAIN WO CONTRAST Reviewed date:07/19/2024 06:10:17 PM Interpretation: Performing Lab: Notes/Report: See Note [facility], a member of [employer] PROCEDURE: Brain MRI INDICATION: Alzheimer's, Hope study TECHNIQUE: Multiplanar, multisequence MRI of the brain Without contrast. COMPARISON: 01/12/2024 and MRIs dating back to 08/02/2022 FINDINGS: No acute infarct. There is new sulcal susceptibility artifact in the medial aspect of the right frontal lobe. Unchanged susceptibility artifact in the left frontal lobe corresponding to developmental venous anomaly seen previously. There is no associated FLAIR hyperintensity in these regions to suggest acute hemorrhage. There is a sessile extra-axial mass along the left wing of the sphenoid, extending into the left cavernous sinus, left lateral sella, and left orbital apex which is stable in retrospect dating back to 08/02/2022. Pituitary gland and foramen magnum are normal. Temporal lobe predominant volume loss is similar compared to prior. Severe chronic small vessel ischemic changes throughout the supratentorial white matter, stable compared to prior. No hydrocephalus. Sinuses and mastoid air cells are clear. Bilateral lens implants. Sequela cosmetic injections seen in the anterior face. No marrow replacing lesions throughout the calvarium. Cervical fusion hardware noted. IMPRESSION: No acute findings. 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 Unchanged temporal lobe predominant volume loss and severe chronic small vessel ischemic changes throughout the supratentorial white matter. Unchanged sessile meningioma along the left wing of the sphenoid, involving the left cavernous sinus, left lateral sella, and left orbital apex, stable in retrospect dating back to 2022. -------- FINAL REPORT -------- Dictated By: LIZA MAJANO Dictated Date: 07/19/2024 11:00 ET Assigned Physician: LIZA MAJANO Reviewed and Electronically Signed By: LIZA MAJANO Signed Date: 07/19/2024 11:47 ET Workstation ID: [id number] Transcribed By: Self Edit Transcribed Date: 07/19/2024 11:[address] Abdomen & Pelvis Reviewed date:06/20/2024 09:16:34 PM Interpretation: Performing Lab: Notes/Report: Original Report PROCEDURE: CT ABDOMEN and PELVIS without CONTRAST INDICATION: Other partial intestinal obstruction. TECHNIQUE: CT of the abdomen and pelvis was performed without intravenous contrast. Automated mA/kV exposure control was utilized and patient examination was performed in strict accordance with principles of ALARA. RADIATION AMOUNT: 340.10 mGy-cm. COMPARISON: CT abdomen and pelvis 09/21/19 imaging only, report(s) unavailable. FINDINGS: Abdomen: The lung bases are clear. Minimal pericardial effusion. The liver, spleen, pancreas, adrenal glands, and kidneys are suboptimally evaluated on these unenhanced images, but demonstrate no acute pathology. Normal-appearing gallbladder. There is no free air or lymph node enlargement. Abdominal aorta is not aneurysmal. Pelvis: There is no bowel wall thickening or obstruction. The appendix is visualized and is normal in appearance. There is no free fluid. Lymph nodes are not enlarged. Urinary bladder is unremarkable. Skeleton: There are no acute fractures. No suspicious bony lesions. Stable degenerative and postoperative changes of the lumbar spine. IMPRESSION: No acute abdominal or pelvic abnormality. Minimal pericardial effusion. Ralph Brunner MD Signed by Ralph Brunner MD Read by: Ralph Brunner M.D Reviewed and Electronically Signed by: Ralph Brunner M.D Cervical Spine 4 or 5 Views Reviewed date:05/15/2024 09:06:32 AM Interpretation: Performing Lab: Notes/Report: Cervical Spine 4 or 5 Views Reason: radiculopathy cervical region COMPARISON: 06/22/2022 FINDINGS: No bone lesions or fractures. Normal odontoid and C1/2 relationship. There is cervical straightening with 2 to 3 mm anterolisthesis C3-C4, alignment elsewhere is satisfactory. Status post ACDF at C5-C7 with the plate, attached screws and the 2 interspace devices in stable and satisfactory position without complication. There is marked disc space narrowing with some marginal osteophyte formation at C4-C5. There is mild to moderate neuroforaminal encroachment bilaterally at C4-C5, C5-C6 and C6-C7. Normal prevertebral soft tissues and clear lung apices. IMPRESSION: 1. Stable appearance of the ACDF at C5-C7. 2. Fairly advanced degenerative disc disease C4-C5. Bilateral neural foraminal encroachment by posterior vertebral osteophytes C4-C5 through C6-C7. 3. Mild anterolisthesis C3-C4. WSN: [id number] Ordering Physician: Alessandra Pat Dictated By: Goodman ROSENBERG, Iek Pelletier Shoulder Min 2 Views Right Reviewed date:05/15/2024 09:06:32 AM Interpretation: Performing Lab: Notes/Report: Examination: Right shoulder performed on 05/14/2024. History: Reason: pain in right shoulder Findings: Frontal internal and external rotation views of the right shoulder are submitted. The humeral head is normally aligned with the glenoid. No fractures are seen. Calcification related to the rotator cuff is demonstrated. The AC joint is preserved. Cervical spine hardware is noted. IMPRESSION: Changes of calcific tendinopathy. There is no acute osseous abnormality. WSN: [id number] Ordering Physician: Alessandra Pat Dictated By: Tammy Bryant MD CR Shoulder RT Min 2 View Reviewed date:05/22/2024 10:06:25 PM Interpretation: Performing Lab: Notes/Report: MR Cervical Spine WO Reviewed date:10/10/2024 03:47:21 PM Interpretation: Performing Lab: Notes/Report: CR Spine Cervical Min 4 View s Reviewed date:05/22/2024 10:06:03 PM Interpretation: Performing Lab: Notes/Report: Urinalysis, Complete-[id number] Reviewed date:02/15/2024 03:24:45 PM Interpretation: Performing Lab:[facility], [address] [place] [address], Phone - [phone], Director - Deborah Notes/Report: Specific [place] 1.023 1.005-1.030 pH 5.5 5.0-7.5 Urine-Color Yellow Yellow Appearance Clear Clear WBC Esterase Negative Negative Protein Trace Negative/Trace Glucose Negative Negative Ketones Negative Negative Occult Blood Negative Negative Bilirubin Negative Negative Urobilinogen,Semi-Qn 0.2 0.2-1.0 mg/dL Nitrite, Urine Negative Negative Microscopic Examination Micr oscopic follows if indicated. Microscopic Examination See below: Micr oscopic was indicated and was performed. WBC 0-5 0 - 5 /hpf RBC 0-2 0 - 2 /hpf Epithelial Cells (non renal) 0-10 0 - 10 /hpf Casts None seen None seen /lpf Bacteria None seen None seen/Few Albumin/Creatinine Ratio,Uri ne-[id number] Reviewed date:02/15/2024 03:24:45 PM Interpretation: Performing Lab:[facility] [place], [address] [facility], Phone - [phone], Director - MDJodry Notes/Report: Creatinine, Urine 111.2 Not Estab. mg/dL Albumin, Urine 31.0 Not Estab. ug/mL Alb/Creat Ratio 28 0-29 mg/g creat Normal: 0 - 29 Moderately increased: 30 - 300 Severely increased: >300 Comp. Metabolic Panel (14)- Reviewed date:02/15/2024 03:24:45 PM Interpretation: Performing Lab:[facility] [place], [address] [facility], [place], Phone - [phone], Director - MDJoy Notes/Report: Glucose 86 70-99 mg/dL BUN 21 8-27 mg/dL Creatinine 1.04 0.57-1.00 mg/dL eGFR 55 >59 mL/min/1.73 BUN/Creatinine Ratio 20 12-28 Sodium 141 134-144 mmol/L Potassium 4.7 3.5-5.2 mmol/L Chloride 105 96-106 mmol/L Carbon Dioxide, Total 23 20-29 mmol/L Calcium 9.8 8.7-10.3 mg/dL Protein, Total 6.5 6.0-8.5 g/dL Albumin 4.2 3.8-4.8 g/dL Globulin, Total 2.3 1.5-4.5 g/dL Bilirubin, Total 0.6 0.0-1.2 mg/dL Alkaline Phosphatase 83 44-121 IU/L AST (SGOT) 41 0-40 IU/L ALT (SGPT) 34 0-32 IU/L Comp. Metabolic Panel (14)- Reviewed date:04/09/2024 10:05:23 AM Interpretation: Performing Lab:[facility] [place], [address] [facility], [place], Phone - [phone], Director - MDJoy Notes/Report: Glucose 90 70-99 mg/dL BUN 19 8-27 mg/dL Creatinine 1.00 0.57-1.00 mg/dL eGFR 58 >59 mL/min/1.73 BUN/Creatinine Ratio 19 12-28 Sodium 140 134-144 mmol/L Potassium 4.5 3.5-5.2 mmol/L Chloride 103 96-106 mmol/L Carbon Dioxide, Total 24 20-29 mmol/L Calcium 9.4 8.7-10.3 mg/dL Protein, Total 6.7 6.0-8.5 g/dL Albumin 4.5 3.8-4.8 g/dL Globulin, Total 2.2 1.5-4.5 g/dL Bilirubin, Total 0.7 0.0-1.2 mg/dL Alkaline Phosphatase 83 44-121 IU/L AST (SGOT) 33 0-40 IU/L ALT (SGPT) 21 0-32 IU/L Albumin/Creatinine Ratio,Uri ne-[id number] Reviewed date:04/09/2024 10:05:23 AM Interpretation: Performing Lab:[facility], [address] [place] [address], Phone - [phone], Director - MDJodry Notes/Report: Creatinine, Urine 103.1 Not Estab. mg/dL Albumin, Urine 23.3 Not Estab. ug/mL Alb/Creat Ratio 23 0-29 mg/g creat Normal: 0 - 29 Moderately increased: 30 - 300 Severely increased: >300 Vitamin D, 61-[id number]-[id number] Reviewed date:04/09/2024 10:05:23 AM Interpretation: Performing Lab:[facility], [address] [place] [address], Phone - [phone], Director - MDRoxanay Notes/Report: Vitamin D, 25-Hydroxy 28.6 30.0-100.0 ng/mL Vitamin D deficiency has been defined by the [place] of [employer] and an Endocrine Society practice guideline as a level of serum 25-OH vitamin D less than 20 ng/mL (1,2). The Endocrine Society went on to further define vitamin D insufficiency as a level between 21 and 29 ng/mL (2). 1. IOM ([place] [employer]). 2010. Dietary reference intakes for calcium and D. [place]: The National Academies Press. 2. Ashlee MF, Rohini LAMAS, Woo ZULUAGA, et al. Evaluation, treatment, and prevention of vitamin D deficiency: an Endocrine Society clinical practice guideline. JCEM. 2010; 96(7):1911-30. TSH-[id number] Reviewed date:04/09/2024 10:05:23 AM Interpretation: Performing Lab:[facility] [place], [address] [place] [address], Phone - [phone], Director - MDMicheladry Notes/Report: TSH 2.100 0.450-4.500 uIU/mL Urinalysis, Complete-[id number] Reviewed date:04/09/2024 10:05:23 AM Interpretation: Performing Lab:[facility] [address], Phone - [phone], Director - MDMicheladry Notes/Report: Specific [place] 1.022 1.005-1.030 pH 6.0 5.0-7.5 Urine-Color Yellow Yellow [...] None seen 0 - 5 /hpf RBC None seen 0 - 2 /hpf Epithelial Cells (non renal) None seen 0 - 10 /hpf Casts None seen None seen /lpf Bacteria None seen None seen/Few Folate (Folic Acid), Serum-0 [id number] Reviewed date:04/09/2024 10:05:23 AM Interpretation: Performing Lab:[facility] [address], Phone - [phone], Director - MDJodry Notes/Report: Folate (Folic Acid), Serum 8.8 >3.0 ng/mL A serum folate concentration of less than 3.1 ng/mL is considered to represent clinical deficiency. Thyroxine (T4) Free, Direct- [id number] Reviewed date:04/09/2024 10:05:23 AM Interpretation: Performing Lab:[facility] [place], [address] [place] [address], Phone - [phone], Director - MDJodry Notes/Report: T4,Free(Direct) 1.27 0.82-1.77 ng/dL Vitamin [id number] Reviewed date:04/09/2024 10:05:23 AM Interpretation: Performing Lab:[facility], [address], [place], Phone - [phone], Director - Deborah Notes/Report: Vitamin B12 207 725-0100 pg/mL MRI Cervical Spine W/O Contr ast Reviewed date:10/05/2024 03:42:09 PM Interpretation: Performing Lab: Notes/Report: MRI Cervical Spine W/O Contrast Reason: Neck pain and shoulder pain. TECHNIQUE: MRI of the cervical spine was performed without intravenous contrast utilizing sagittal T1, sagittal T2, sagittal STIR, axial gradient echo, and axial T2-weighted sequences. COMPARISON: Cervical spine x-rays, 05/14/2024 and cervical spine MRI, 10/31/2019. FINDINGS: ALIGNMENT, VERTEBRAE, MARROW, AND DISCS: There straightening of the normal lordosis with trace anterolisthesis of C3 on C4. Postoperative changes are seen from anterior fusion spanning C5-C7 utilizing an anterior plate with screws and intervertebral disc spacers. Susceptibility artifact mildly limits assessment at these levels. Vertebral body heights are preserved. There is severe disc space narrowing at C4-5 with small anterior osteophyte. Bone marrow signal is normal. POSTERIOR FOSSA AND CORD: Small foci of high T2 signal are seen in the upper bridgette, likely related to mild chronic microvascular ischemic change. Focal high T2 signal is seen along either side of midline in the cord at C4-5 and C5-6, also present in 2020 though more conspicuous on today's study. There is probably mild volume loss of the cord at the latter level. PARASPINAL TISSUES: Soft tissues of the neck are unremarkable. Major cervical flow voids are present. DETAILED FINDINGS BY LEVEL: C2-C3: No significant canal stenosis or neural foraminal narrowing. C3-C4: There is a tiny central protrusion causing mild canal stenosis. There is probably mild narrowing of the right neural foramen from uncovertebral spurring. C4-C5: There is broad-based disc osteophyte causing mild canal stenosis. Uncovertebral spurring results in severe narrowing of both neural foramen. C5-C6: Status post anterior fusion. There is residual posterior osteophyte and posterior ligamentous buckling causing probably mild canal stenosis. There is severe narrowing of both neural foramen from the vertebral spurring. C6-C7: Status post anterior fusion. There is residual posterior osteophyte as well as posterior ligamentous buckling causing mild canal stenosis. There is mild right and mild to moderate left neural foraminal stenosis from uncovertebral spurring and left-sided facet spurring. C7-T1: There is minimal disc osteophyte asymmetric to the right is most posterior ligamentous buckling causing only minimal canal stenosis. There is mild to moderate narrowing of the right neural foramen from uncovertebral spurring. IMPRESSION: 1. Status post anterior fusion from C5-C7. Focal high T2 signal is seen within the cord at C4-5 and C5-6, with mild volume loss at the latter level, likely representing myelomalacia. 2. Multilevel degenerative changes are seen as described without cord compression, though there is severe narrowing of both neural foramen at C4-5 and C5-6. Please see detailed levels above. WSN: [id number] Ordering Physician: Alessandra Pat Dictated By: Nani Cade MD MM Digital Mammo Screening Reviewed date:11/14/2023 06:50:11 PM Interpretation: Performing Lab: Notes/Report: PROCEDURE: MM Digital Mammo Screening INDICATION: Screening for breast cancer. No known palpable abnormalities. COMPARISON: Multiple priors dating back to 11/10/2020 TECHNIQUE: Full-field digital CC and MLO 3D tomosynthesis images of both breasts were acquired. Computer-aided detection (CAD) was utilized in the interpretation of this study. DENSITY: The breast tissue is heterogeneously dense, which may obscure small masses. FINDINGS: No suspicious masses, suspicious microcalcifications, or areas of architectural distortion are seen in either breast to suggest malignancy. IMPRESSION: No mammographic evidence of malignancy. RECOMMENDATION: Annual mammographic screening BI-RADS: 1 (Negative) Lay letter mailed to patient I have personally reviewed the images and I agree with this report. WSN: [id number] Ordering Physician: Elsi Castellano Dictated By: Katty Hernandez MD Reason For Referral Reason faxed Diagnosis 1 Sensorineural hearin g loss, bilateral (H90.3) Referral Organization [facility] Referring Provider First Name Elsi Referring Provider Last Name Gray Referring Provider Speciality Internal M edicine Referred Provider Anita Hearing, [facility] Referred Provider Specialty Audiologists General Notes [facility], Zayda 12/20 11:44:32 AM >faxed Referral Priority Routine Reason faxed Diagnosis 1 Alzheimer's disease with late onset (G30.1) Referral Organization [facility] Referring Provider First Name Elsi Referring Provider Last Name Gray Referring Provider Speciality Internal edicine Referred Provider Stephanie Pierre Referred Provider Specialty Neurology General [facility] 10:36:18 AM >[facility]ed, [facility]/23/2024 08:26:02 AM >Fax from [facility] received, they are requesting patient be referred to a closer provider., [facility]/23/2024 04:39:52 PM >Updating referral to Dr Pierre., [facility] Zayda 10/15/2024 02:10:35 PM >[place] [facility] cancelled Referral Priority Routine Reason appt 10/24 Diagnosis 1 Spinal stenosis, lum bar region with neurogenic claudication (M48.062) Referral Organization [facility] Referring Provider First Name Elsi Referring Provider Last Name Gray Referring Provider Speciality Internal edicine Referred Provider [facility] Referral, [facility] Referred Provider Specialty Neurosurgery General Notes [facility] 04:42:30 PM >completed [facility] [place] and faxed, [facility] 10/15/2024 02:04:03 PM >Patient has appt Dr Schroeder 10/24/24 ay 845am Referral Priority Routine Referral Appointment Date 10/24/2024 Reason appt 12/11/24 Diagnosis 1 Spinal stenosis, lum bar region with neurogenic claudication (M48.062) Referral Organization [facility] Referring Provider First Name Elsi Referring Provider Last Name Gray Referring Provider Speciality Internal edicine Referred Provider [facility] Referral, [facility] [employer] Referred Provider Specialty Neurosurgery General Notes [facility] 02:13:55 PM >Appt Dr Reaves 12/11/24 1pm Referral Priority Routine Referral Appointment Date 12/11/2024 Medications Medication SIG (Take, Route, Frequency, Duration) Notes Start Date End Date Status Biotin Active Vitamin C Active Sleep Aid Active Donepezil HCl 10 MG Oral; Duration: 45 Days Active Rosuvastatin Calcium 10 MG TAKE ONE TABLET BY MOUTH THREE TIMES A WEEK; Duration: 70 Not-Taking Calcium Active Vitamin D 1000 UNIT 3 capsule Orally Onc e a day Active Magnesium 500 MG 1 tablet with a meal Orally Once a day Active traZODone HCl 50 MG Oral; Duration: 60 Days Active Ramipril 10 MG 1 capsule Orally Onc e a day; Duration: 90 days Active amLODIPine Besylate 5 MG 1 tablet Orally Once a day; Duration: 30 days 02/13/2024 Active Belsomra 15 MG 1 tablet at bedtime Orally Once a day; Duration: 30 days 08/03/2024 12/01/2024 Active Immunizations Vaccine Route Administration Date Status Comme nts Td (adult) preservative free Unknown 06/11/2005 Administered Pneumococcal polysaccharide PPV23 Unknown 03/09/2011 Administered Pneumococcal polysaccharide PCV 13 Unknown 10/31/2014 Administered Influenza, seasonal, injectable (split), for 3 yrs and up IM Intramuscular 01/19/2017 Administered Influenza, high dose seasonal IM Intramuscular 01/30/2020 Administered Influenza IM Intramuscular 01/12/2016 Administered Influenza Unknown 12/12/2018 Administered *Tdap Unknown 07/21/2012 Administered *Tdap IM Intramuscular 09/02/2022 Administered *Shingrix Unknown 12/03/2020 Administered *PREVNAR 20 IM Intramuscular 01/12/2024 Administered *Influenza-Medicare-AS IM Intramuscular 02/18/2021 Adminis tered *Xtfukipcu-Wtmzbfi-Okbd Dose-65+ IM Intramuscular 01/12/2024 Administered *Influenza, High Dose Seasonal, Quadrivatent IM Intramuscular 12/10/2022 Administered Problems Problem Type SNOMED Code ICD Code Onset Dates Problem Status W/U Status Risk Notes Problem Hypothyroidism (54425871) Hypothyroidism, unspecified (E03.9) Active confirmed Problem Vitamin D deficiency (23087943) Vitamin D deficiency, unspecified (E55.9) Active confirmed Problem Mixed hyperlipidemia (601950154) Mixed hyperlipidemia (E78.2) Active confirmed Problem Tobacco user (342459269) Nicotine dependence, cigarettes, in remission (F17.211) Active confirmed Problem Alzheimer's disease with late onset (178875735) Alzheimer's disease with late onset (G30.1) Active confirmed Problem Insomnia (518791935) Insomnia, unspecified (G47.00) Active confirmed Problem Sensorineural hearing loss of bilateral ears (disorder) (649258697) Sensorineural hearing loss, bilateral (H90.3) Active confirmed Problem Tinnitus of left ear (7472807933526) Tinnitus, left ear (H93.12) Active confirmed Problem Chronic kidney disease due to hypertension (240493178558811) Hypertensive chronic kidney disease with stage 1 through stage 4 chronic kidney disease, or unspecified chronic kidney disease (I12.9) Active confirmed Problem Paroxysmal tachycardia (03197456) Paroxysmal tachycardia, unspecified (I47.9) Active confirmed Problem Erythromelalgia (84869864) Erythromelalgia (I73.81) Active confirmed Problem Atopic dermatitis (69840389) Other atopic dermatitis (L20.89) Active confirmed Problem 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) (9437731233) Other spondylosis with myelopathy, cervical region (M47.12) Active confirmed Problem Lumbosacral spondylosis without myelopathy (53099259) Other spondylosis with radiculopathy, lumbar region (M47.26) Active confirmed Problem Spinal stenosis in cervical region (33888924) Spinal stenosis, cervical region (M48.02) Active confirmed Problem Displacement of lumbar intervertebral disc without myelopathy (28193744) Other intervertebral disc displacement, lumbar region (M51.26) Active confirmed Problem Cervical radiculopathy (66612762) Radiculopathy, cervical region (M54.12) Active confirmed Problem Cervicalgia (74727313) Cervicalgia (M54.2) Active confirmed Problem Age-related osteoporosis (689734044) Age-related osteoporosis without current pathological fracture (M81.0) Active confirmed Problem Family history of malignant neoplasm of breast (124013871) Family history of malignant neoplasm of breast (Z80.3) Active confirmed Problem Irritable bowel syndrome (90115853) Other irritable bowel syndrome (K58.8) Active confirmed Problem Neurogenic claudication (820160990) Spinal stenosis, lumbar region with neurogenic claudication (M48.062) Active confirmed Problem Chronic kidney disease stage 3A (disorder) (552003526) Chronic kidney disease, stage 3a (N18.31) Active confirmed Problem Vascular dementia (disorder) (622598881) Vascular dementia, mild, without behavioral disturbance, psychotic disturbance, mood disturbance, and anxiety (F01.A0) Active confirmed Problem Dementia (disorder) (62479135) Dementia in other diseases classified elsewhere, severe, without behavioral disturbance, psychotic disturbance, mood disturbance, and anxiety (F02.C0) Active confirmed Problem Moderate dementia (disorder) (425100934805892) Unspecified dementia, moderate, without behavioral disturbance, psychotic disturbance, mood disturbance, and anxiety (F03.B0) Active confirmed Problem Personal history of adenomatous and serrated colon polyps (Z86.0101) Active confirmed Problem Acute stress reaction (27300738) Acute stress reaction (F43.0) Inactive confirmed Problem Chronic kidney disease stage 3 (736688036) Chronic kidney disease, stage 3 (moderate) (N18.3) Inactive confirmed Problem COVID19 SAJAN-Viru s Identified (U07.1) Problem resolved confirmed Vital Signs Heart Rate 62 /min 11/07/2024 Temperature 96.0 degrees Fahrenheit 11/07/2024 Blood pressure diastolic 60 mm Hg 11/07/2024 Oximetry 98 % 11/07/2024 Height 61.5 in 11/07/2024 Blood pressure systolic 126 mm Hg 11/07/2024 Weight 103 lbs 11/07/2024 BMI 19.14 kg/m2 11/07/2024 Encounters Encounter Location Date Provider Diagnosis Elsi Castellano MD [address] [id number] 01/03/2024 Elsi Castellano MD [address] [id number] 01/12/2024 Elsi Castellano Encounter for genera l adult medical examination without abnormal findings Z00.00 ; Hypertensive chronic kidney disease with stage 1 through stage 4 chronic kidney disease, or unspecified chronic kidney disease I12.9 ; Chronic kidney disease, stage 3a N18.31 ; Age-related osteoporosis without current pathological fracture M81.0 ; Vascular dementia, mild, without behavioral disturbance, psychotic disturbance, mood disturbance, and anxiety F01.A0 ; Hypothyroidism, unspecified E03.9 ; Mixed hyperlipidemia E78.2 ; Other spondylosis with myelopathy, cervical region M47.12 ; Family history of malignant neoplasm of breast Z80.3 ; Personal history of adenomatous and serrated colon polyps Z86.0101 ; Vitamin D deficiency, unspecified E55.9 ; Nicotine dependence, cigarettes, in remission F17.211 ; Encounter for screening for malignant neoplasm of colon Z12.11 ; Encounter for screening mammogram for malignant neoplasm of breast Z12.31 ; Encounter for screening for osteoporosis Z13.820 ; Asymptomatic menopausal state Z78.0 ; Encounter for screening for cardiovascular disorders Z13.6 ; Encounter for antibody response examination Z01.84 ; Encounter for immunization Z23 ; Encounter for screening for other viral diseases Z11.59 ; Myalgia, unspecified site M79.10 and Sensorineural hearing loss, bilateral H90.3 Elsi Castellano MD [address] [id number] 02/13/2024 Elsi Castellano Hypertensive chronic kidney disease with stage 1 through stage 4 chronic kidney disease, or unspecified chronic kidney disease I12.9 ; Chronic kidney disease, stage 3a N18.31 and Vascular dementia, mild, without behavioral disturbance, psychotic disturbance, mood disturbance, and anxiety F01.A0 Elsi Castellano MD [address] [id number] 04/02/2024 Elsi Castellano Hypertensive chronic kidney disease with stage 1 through stage 4 chronic kidney disease, or unspecified chronic kidney disease I12.9 ; Chronic kidney disease, stage 3a N18.31 ; Vascular dementia, mild, without behavioral disturbance, psychotic disturbance, mood disturbance, and anxiety F01.A0 ; Age-related osteoporosis without current pathological fracture M81.0 ; Hypothyroidism, unspecified E03.9 ; Mixed hyperlipidemia E78.2 ; Other spondylosis with myelopathy, cervical region M47.12 and Vitamin D deficiency, unspecified E55.9 Elsi Castellano MD [address] [id number] 05/14/2024 Alessandra Pat Radiculopathy, cervi dominique region M54.12 and Pain in right shoulder M25.511 Elsi Castellano MD [address] [id number] 06/12/2024 [facility] Alzheimer's disease with late onset G30.1 and Other partial intestinal obstruction K56.690 Elsi Castellano MD [address] [id number] 07/18/2024 [facility] Hypertensive chronic kidney disease with stage 1 through stage 4 chronic kidney disease, or unspecified chronic kidney disease I12.9 ; Alzheimer's disease with late onset G30.1 ; Chronic kidney disease, stage 3a N18.31 ; Vascular dementia, mild, without behavioral disturbance, psychotic disturbance, mood disturbance, and anxiety F01.A0 ; Age-related osteoporosis without current pathological fracture M81.0 ; Hypothyroidism, unspecified E03.9 ; Mixed hyperlipidemia E78.2 ; Other spondylosis with myelopathy, cervical region M47.12 and Vitamin D deficiency, unspecified E55.9 Elsi Castellano MD [address] [id number] 10/15/2024 Elsi Castellano Spinal stenosis, lum bar region with neurogenic claudication M48.062 ; Other intervertebral disc displacement, lumbar region M51.26 and Other spondylosis with radiculopathy, lumbar region M47.26 Elsi Castellano MD [address] [id number] 11/07/2024 Elsi Castellano Hypertensive chronic kidney disease [...] M51.26 and Vitamin D deficiency, unspecified E55.9 Elsi Castellano MD [address] [id number] 01/05/2024 Elsi Castellano MD [address] [id number] 04/02/2024 Elsi Castellano MD [address] [id number] 04/05/2024 Elsi Castellano MD [address] [id number] 05/15/2024 Elsi Castellano MD [address] [id number] 06/13/2024 Elsi Castellano MD [address] [id number] 06/18/2024 Elsi Castellano MD [address] [id number] 06/19/2024 Elsi Castellano Spinal stenosis, lum bar region with neurogenic claudication M48.062 Elsi Castellano MD [address] [id number] 06/20/2024 Elsi Castellano MD [address] [id number] 08/03/2024 Elsi Castellano MD [address] [id number] 08/06/2024 Elsi Castellano MD [address] [id number] 08/20/2024 Elsi Castellano Alzheimer's disease with late onset G30.1 and Spinal stenosis, lumbar region with neurogenic claudication M48.062 Elsi Castellano MD [address] [id number] 08/23/2024 Elsi Castellano MD [address] [id number] 10/01/2024 Elsi Castellano Spinal stenosis, lum bar region with neurogenic claudication M48.062 Elsi Castellano MD [address] [id number] 10/05/2024 Elsi Castellano MD [address] [id number] 10/09/2024 Elsi Castellano Assessments Encounter Date Diagnosis (ICD Code) Assessment Notes Treatment Notes Treatment Clinical Notes Section Notes 01/12/2024 Hypertensive chronic kidney disease with stage 1 through stage 4 chronic kidney disease, or unspecified chronic kidney disease (ICD-10 - I12.9) Her blood pressure is elevated and not ideally controlled. Given her dementia recommend goal of systolic blood pressure less than 120. It appears that she may not be taking her medical therapy and recommend resuming medical therapy. 01/12/2024 Encounter for general adult medical examination without abnormal findings (ICD-10 - Z00.00) General healthcare up-to-date. Check routine labs. Her who is also in the room reports that her eldest son Bert is the healthcare proxy 02/13/2024 Hypertensive chronic kidney disease with stage 1 through stage 4 chronic kidney disease, or unspecified chronic kidney disease (ICD-10 - I12.9) Fair control at present. Ideally her systolic blood pressure should be less than 120 to meet the guidelines based on the [employer] mind trial. This would also help reduce progressive cognitive impairment. Recommend adding second agent. She thinks that she has too much salt which may be 1 part of it but this may not be the only reason for her elevated blood pressure. 02/13/2024 Chronic kidney disease, stage 3a (ICD-10 - N18.31) Stable estimated GFR in the 50s. Continue control of comorbidity of hypertension 04/02/2024 Hypertensive chronic kidney disease with stage 1 through stage 4 chronic kidney disease, or unspecified chronic kidney disease (ICD-10 - I12.9) Her blood pressure remains elevated. She says her is supervising her med administration and she is taking her medications. However given the persistently elevated blood pressure there may be a compliance issue. Need to verify this with her and if she is taking her medications correctly than the dose of medical therapy needs to be adjusted 05/14/2024 Pain in right shoulder (ICD-10 - M25.511) Discussed with patient and her that I suspect her pain in her right shoulder is related to her cervical spine. Will obtain a baseline right shoulder x-ray but did discuss that a cervical spine MRI would be best to further evaluate for nerve involvement and compression. 05/14/2024 Radiculopathy, cervical region (ICD-10 - M54.12) Reviewed with patient and her her presenting symptoms and suspect patient may have nerve involvement stemming from her cervical spine. Will obtain a cervical spine x-ray as well as a cervical MRI. Patient was noted to be in a decent mount of pain during today's visit especially with movement of her right shoulder and neck. Will begin a short course of prednisone, realizing that patient does have an underlying history of osteoporosis and would not want this to be long-term. Patient also consider Flexeril at night to assist with pain management while we wait for imaging in her MRI. Patient aware to follow-up should she have worsening pain or new symptoms of concern while we wait for imaging 06/12/2024 Alzheimer's disease with late onset (ICD-10 - G30.1) She follows up with [facility]. She is considering disease modifying therapy. 06/12/2024 Other partial intestinal obstruction (ICD-10 - K56.690) She returned from [place]. She had been fine in [place]. She went to a wedding in [place] and was fine at that time. She returned from [place] and had a cookie that she had obtained at a wedding medical reception specialist in [place]. Since then she had sweats and nausea. She vomited twice since then but has been eating but not well. There is no diarrhea. Water goes down well. She may have a enteritis with a partial small bowel obstruction as a possibility. At this point recommend clear liquid diet and can consider CAT scan to exclude partial obstruction/enteri tis 06/19/2024 Spinal stenosis, lumbar region with neurogenic claudication (ICD-10 - M48.062) 04/02/2024 Chronic kidney disease, stage 3a (ICD-10 - N18.31) Stable estimated GFR in the 50s. Continue control comorbidity of hypertension 07/18/2024 Alzheimer's disease with late onset (ICD-10 - G30.1) Continues to have monoclonal antibody therapy for disease modification 07/18/2024 Hypertensive chronic kidney disease with stage 1 through stage 4 chronic kidney disease, or unspecified chronic kidney disease (ICD-10 - I12.9) Her blood pressure is still elevated and fair. She has been getting blood pressure readings at the [facility] and the is not aware of the results. At this point can use the office blood pressure readings as the guideline to help control her hypertension. I do not think she will be able to effectively take her blood pressure on her own at home. 08/20/2024 Alzheimer's disease with late onset (ICD-10 - G30.1) 08/20/2024 Spinal stenosis, lumbar region with neurogenic claudication (ICD-10 - M48.062) 10/01/2024 Spinal stenosis, lumbar region with neurogenic claudication (ICD-10 - M48.062) 10/15/2024 Other intervertebral disc displacement, lumbar region (ICD-10 - M51.26) As above 10/15/2024 Spinal stenosis, lumbar region with neurogenic claudication (ICD-10 - M48.062) Her MRI is reviewed. She is having increasing pain and loss of function with the inability to walk effectively. MRIs reviewed. She already has an appointment with neurosurgery and that is in November. We could try gabapentin for pain relief but given the potential side effects of cognitive impairment and the risk for fall would hold off on this treatment. Continue supportive care until orthopedic surgery evaluation completed 11/07/2024 Hypertensive chronic kidney disease with stage [...] been discontinued due to complications with Aria. 10/15/2024 Other spondylosis with radiculopathy, lumbar region (ICD-10 - M47.26) As above 07/18/2024 Chronic kidney disease, stage 3a (ICD-10 - N18.31) Stable estimated GFR in the 50s. Continue control comorbidity of hypertension 04/02/2024 Vascular dementia, mild, without behavioral disturbance, psychotic disturbance, mood disturbance, and anxiety (ICD-10 - F01.A0) Stable at present. She needs to be have better blood pressure control. She does not know if she has had further evaluation such as amyloid PET scan to evaluate for possible Alzheimer's. Can check with . If she has not she may benefit from this given her progressive memory loss and her recent labs that were done at another facility that revealed APO E4 02/13/2024 Vascular dementia, mild, without behavioral disturbance, psychotic disturbance, mood disturbance, and anxiety (ICD-10 - F01.A0) Continues on medical therapy through neurology. She does not recall any new developments or testing. Her is not present to review her situation. She reports that she has some diarrhea which may be a side effect of her medical therapy for her dementia. 01/12/2024 Chronic kidney disease, stage 3a (ICD-10 - N18.31) Stable estimated GFR is in the 50s. Recheck status and control comorbidity of hypertension 01/12/2024 Age-related osteoporosis without current pathological fracture (ICD-10 - M81.0) Stable on prior bone density and periodic follow-up through endocrine 07/18/2024 Vascular dementia, mild, without behavioral disturbance, psychotic disturbance, mood disturbance, and anxiety (ICD-10 - F01.A0) Stable at present. She probably has a component of vascular dementia along with Alzheimer's dementia. Continue to control comorbidity of hypertension 11/07/2024 Dementia in other diseases classified elsewhere, severe, without behavioral disturbance, psychotic disturbance, mood disturbance, and anxiety (ICD-10 - F02.C0) As above 11/07/2024 Vascular dementia, mild, without behavioral disturbance, psychotic disturbance, mood disturbance, and anxiety (ICD-10 - F01.A0) Stable and unchanged. Continue control of comorbidity of hypertension. 07/18/2024 Age-related osteoporosis without current pathological fracture (ICD-10 - M81.0) She does not recall her last visit with endocrine. Status unclear 04/02/2024 Age-related osteoporosis without current pathological fracture (ICD-10 - M81.0) She does not recall her last visit with endocrine. Status unclear 01/12/2024 Vascular dementia, mild, without behavioral disturbance, psychotic disturbance, mood disturbance, and anxiety (ICD-10 - F01.A0) She most likely has vascular dementia. She is undergoing evaluation at [facility] and has a amyloid scan pending. If this is positive then she may have true Alzheimer's and may benefit from medical therapy to change course of decline. Otherwise if this is negative then there is no specific medical therapy that would change the course of her decline. Based on her MRI with vascular disease changes and volume loss she most likely has vascular etiology. 01/12/2024 Hypothyroidism, unspecified (ICD-10 - E03.9) Stable on prior labs reviewed. Recheck status 04/02/2024 Hypothyroidism, unspecified (ICD-10 - E03.9) She says she continues to take her medical therapy. Recheck status to verify compliance 07/18/2024 Hypothyroidism, unspecified (ICD-10 - E03.9) Stable on prior and recent labs as reviewed 11/07/2024 Age-related osteoporosis without current pathological fracture (ICD-10 - M81.0) She does not recall her last visit with endocrine. Status unclear 04/02/2024 Mixed hyperlipidemia (ICD-10 - E78.2) Stable on prior labs as reviewed. Can recheck status to verify adequate control of comorbidity 07/18/2024 Mixed hyperlipidemia (ICD-10 - E78.2) Stable on recent labs as reviewed. 11/07/2024 Hypothyroidism, unspecified (ICD-10 - E03.9) Stable on prior labs as reviewed. Can recheck status 01/12/2024 Mixed hyperlipidemia (ICD-10 - E78.2) Fair control at present. Her reports that he she had an elevated creatinine kinase. This may be a side effect of her medical therapy. She does not think she is taking it at the moment and therefore can recheck CK. 01/12/2024 Other spondylosis with myelopathy, cervical region (ICD-10 - M47.12) Stable and unchanged 07/18/2024 Other spondylosis with myelopathy, cervical region (ICD-10 - M47.12) Stable and unchanged 04/02/2024 Other spondylosis with myelopathy, cervical region (ICD-10 - M47.12) Stable and unchanged 11/07/2024 Mixed hyperlipidemia (ICD-10 - E78.2) Stable [...] to see if surgical decompression is warranted 07/18/2024 Vitamin D deficiency, unspecified (ICD-10 - E55.9) Her reports that he is giving her extra vitamin D. Can continue same. 04/02/2024 Vitamin D deficiency, unspecified (ICD-10 - E55.9) Fair control and prior labs reviewed. Recheck status and would consider vitamin D supplementation for goal level of 50+ 01/12/2024 Family history of malignant neoplasm of breast (ICD-10 - Z80.3) Up-to-date on mammogram 01/12/2024 Personal history of adenomatous and serrated colon polyps (ICD-10 - Z86.0101) Up-to-date on colonoscopy 11/07/2024 Spinal stenosis, lumbar region with neurogenic claudication (ICD-10 - M48.062) She just had her injection yesterday and according to the she may be moving a little bit better. Can continue periodic injections and if these are not helpful then would need to consider surgical decompression 11/07/2024 Other intervertebral disc displacement, lumbar region (ICD-10 - M51.26) As above 01/12/2024 Vitamin D deficiency, unspecified (ICD-10 - E55.9) Check level to verify that there is no deficiency. Would consider vitamin D replacement for goal level of 30+ 01/12/2024 Nicotine dependence, cigarettes, in remission (ICD-10 - F17.211) Remains in remission 11/07/2024 Vitamin D deficiency, unspecified (ICD-10 - E55.9) Fair control and prior labs as reviewed. Continue vitamin D supplementation 01/12/2024 Encounter for screening for malignant neoplasm of colon (ICD-10 - Z12.11) Up-to-date on colon cancer screening 01/12/2024 Encounter for screening mammogram for malignant neoplasm of breast (ICD-10 - Z12.31) Up-to-date on breast cancer screening 01/12/2024 Encounter for screening for osteoporosis (ICD-10 - Z13.820) Up-to-date on osteoporosis screening 01/12/2024 Asymptomatic menopausal state (ICD-10 - Z78.0) 01/12/2024 Encounter for screening for cardiovascular disorders (ICD-10 - Z13.6) Blood pressure stable. Can check for comorbidity of hyperlipidemia and hyperglycemia and use this data to further assess risk 01/12/2024 Encounter for antibody response examination (ICD-10 - Z01.84) She would be considered immune to rubeola by virtue of her age 1001/12/2024 Encounter for immunization (ICD-10 - Z23) Vaccines updated 01/12/2024 Encounter for screening for other viral diseases (ICD-10 - Z11.59) Can screen for hepatitis C as is the general recommendation 01/12/2024 Myalgia, unspecified site (ICD-10 - M79.10) As above. Her her reports an elevated CK and can check CK again. 01/12/2024 Sensorineural hearing loss, bilateral (ICD-10 - H90.3) She thinks her hearing is okay but her is concerned that she may have hearing issues and given her dementia and if she would benefit from hearing test to rule out hearing loss negatively affecting her cognitive function 01/12/2024 Other This note was created with voice dictation recognition software and may contain errors of grammar and syntax. Also labs were reviewed with patient. 02/13/2024 Other This note was created with voice dictation recognition software and may contain errors of grammar and syntax. Also labs were reviewed with patient. 04/02/2024 Other This note was created with voice dictation recognition software and may contain errors of grammar and syntax. Also labs were reviewed with patient. 06/12/2024 Other This note was created with voice dictation recognition software and may contain errors of grammar and syntax. Also labs were reviewed with patient. 07/18/2024 Other This note was created with voice dictation recognition software and may contain errors of grammar and syntax. Also labs were reviewed with patient. 10/15/2024 Other This note was created with voice dictation recognition software and may contain errors of grammar and syntax. Also labs were reviewed with patient. 11/07/2024 Other This note was created with voice dictation recognition software and may contain errors of grammar and syntax. Also labs were reviewed with patient. Plan Of Treatment Pending Test Test Name Order Date EMG/NCV 01/09/2020 25OH VITAMIN D 08/26/2021 25OH VITAMIN D 12/09/2021 25OH VITAMIN D 02/02/2023 COMPLETE CBC WITH DIFF 02/02/2023 COMPLETE CBC WITH DIFF 12/09/2021 COMPLETE CBC WITH DIFF 08/26/2021 COMPLETE CBC WITH DIFF 04/11/2023 COMPLETE URINALYSIS 08/26/2021 COMPLETE URINALYSIS 12/09/2021 COMPLETE URINALYSIS 02/02/2023 COMPREHENSIVE METABOLIC PANEL 02/02/2023 COMPREHENSIVE METABOLIC PANEL 06/16/2021 COMPREHENSIVE METABOLIC PANEL 04/11/2023 COMPREHENSIVE METABOLIC PANEL 08/26/2021 COMPREHENSIVE METABOLIC PANEL 12/09/2021 FOLIC ACID 04/11/2023 FREE T4 02/02/2023 FREE T4 12/09/2021 FREE T4 08/26/2021 FREE T4 04/11/2023 IMMUNOFIXATION SERUM 04/11/2023 LIPID PANEL W REFLEX TO DLDL 08/26/2021 LIPID PANEL W REFLEX TO DLDL 12/09/2021 LIPID PANEL W REFLEX TO DLDL 02/02/2023 LIPID PANEL W REFLEX TO DLDL 06/16/2021 SEDIMENTATION RATE 04/11/2023 TSH 04/11/2023 TSH 02/02/2023 TSH 12/09/2021 TSH 08/26/2021 URINARY MICROALBUMIN 02/02/2023 VITAMIN B12 04/11/2023 SYPHILIS TESTING 04/11/2023 MYRIAD myRisk 09/07/2016 ANTI-HEPATITIS C W/RFLX HCV QNT 08/27/19 CR Knee RT 3 View 09/26/2023 HOLTER MONITOR, 7 DAYS, APPLICATION 03/22 MR Brain 08/20/2024 Thyroxine (T4) Free, Direct-[id number] 01/11 Urinalysis, Complete-[id number] 01/12/2024 TSH-[id number] 01/12/2024 CBC With Differential/Platelet-[id number] Sedimentation Wcnn-Myvvndlapl-[id number] Vitamin D, 35-Rubswhy-423902 01/12/2024 Creatine Kinase (CK), MB-[id number] 01/12/20 Albumin/Creatinine Ratio,Urine-911752 Comp. Metabolic Panel [id number] 2023 LP+Non-HDL Cholesterol-705253 01/12/2024 HCV Antibody-[id number] 01/12/2024 Future Test Test Name Order Date MM Digital Mammo Screening 10/19/2024 Dexa Bone Density (Axial) 10/19/2024 Next Appt Details Provider Name:Elsi Gray , 01/29/2025 10:45:00 AM, [address] [place] [address], [place] [address], [place], [place], [id number], Insurance Providers Payer Name Payer Address Payer Phone Subscriber Number Group Number Insured Name Patient Relationship to Insured Coverage Start Date Coverage End Date MEDICARE [address] [place] [phone] [id number] Codi Dumont Self - patient is the insured [facility] MED[employer]y [address] [place] [address] [phone] [id number] Codi Dumont Self - patient is the insured Medical (General) History Medical History History ICD Code Primary hyperparathyroidism Benign neoplasm of parathyroid gland Hypothyroidism, unspecified E03.9 Age-related osteoporosis without current pathological fracture M81.0 Spinal stenosis, lumbar region M48.06 Family history of malignant neoplasm of breast Z80.3 Vitamin D deficiency, unspecified E55.9 Chronic kidney disease, stage 3 (moderat e) N18.3 Hypertensive chronic kidney disease with stage 1 through stage 4 chronic kidney disease, or unspecified chronic kidney disease I12.9 Nicotine dependence, cigarettes, in gaston ssion F17.211 Insomnia, unspecified G47.00 COVID19 SAJAN-Virus Identified (resolved 1 04/04/2022) undefined Surgical History Surgery Date(Month/Year) Parathyroidectomy 12/19/2009 lumbar fusion, L3-L4 04/07/2016 cataract-lens implants Thyroid Biopsy 2019 Section 07/1973 section 01/1976 Anterior Discectomy, Cervical 05/2022 Hospitalization History Reason Date(Month/Year) Chest Pain 05/2021
--- OUTSIDE RECORDS SUMMARY | 2024-11-12 14:55 | XMS_ITS | Clinical Summary ---
Author Organization [facility] Address [address] [place] [address] Care Team Providers Care Defense Analyst Name Role Phone Elsi Castellano MD Primary Care Provider [phone] Allergies No known active allergies Medications denosumab (Prolia) 60 mg/mL Solution Prefilled Syringe subcutaneous injection Active amLODIPine (NORVASC) 5 MG tablet amlodipine 5 mg tablet TAKE ONE TABLET BY MOUTH EVERY DAY Active Active Problems Problem Noted Date Diagnosed Date Cervical stenosis of spinal canal 02/25/2022 Neck pain 02/25/2022 Social History Tobacco Use Types Packs/Day Years Used Date Smoking Tobacco: Never Smokeless Tobacco: Never Tobacco Cessation:Counseling Given: Not Answered Alcohol Use Standard Drinks/Week Comments Yes 7 (1 standard drink = 0.6 oz pur e alcohol) Comments Unknown Sex and Gender Information Value Date Recorded Sex Assigned at Not on file Legal Sex Female 10:02 AM EDT Gender Identity Not on file Sexual Orientation Not on file Last Filed Vital Signs Vital Sign Reading Time Taken Comments Blood Pressure - - Pulse - - Temperature 36.7 C (98 F) 02/25/2022 2:02 PM EST Respiratory Rate - - Oxygen Saturation - - Inhaled Oxygen Concentration - - Weight 47.6 kg (105 lb) 02/25/2022 2:02 PM EST Height 154.9 cm (5' 1 ) 02/25/2022 2:02 PM EST Body Mass Index 19.84 02/25/2022 2:02 PM EST Plan of Treatment Health Maintenance Due Date Last Done Comments Hepatitis C Virus Screening 1945 DTaP/Tdap/Td Vaccines (1 - Tdap) 1965 Pneumococcal Vaccines 50+ (1 of 1 - PCV) 1996 Zoster (Shingles) Vaccine (1 of 2) 1996 DXA Bone Density (Females,Ages 65 and older) 2011 RSV Vaccine 60 years and older and Patients (1 - 1-dose 75+ series) 2021 COVID-19 Vaccine ( - 2023- season) 2023 Influenza Vaccine 10/19/2024 04/03/2021, , 02/18/2021, Additional history exists Hepatitis B Vaccines Aged Out No long er eligible based on patient's age to complete this topic Insurance MEDICARE PART A & [place] [id number] Care Teams Defense Analyst Relationship Specialty Start Date End Date Elsi Castellano MD [address] [address] PCP - General 01/08/22
--- OUTSIDE RECORDS SUMMARY | 2024-11-12 14:55 | XMS_ITS | Encounter Summary ---
Author Organization [facility] Address [address] [place] [address] [place] [address] Phone Care Team Providers Care Parts Salesperson Name Role Phone Roberta Castellano MD Primary Care Provider [phone] Encounter Details Date Type Department Care Team ([facility] Contact Info) Description 11/16/2023 Procedure Pass MRI, [facility] [place] [address] [place] [address] Social History Tobacco Use Types Packs/Day Years Used Date Smoking Tobacco: Former Cigarettes Q uit: 1980 Smokeless Tobacco: Never Alcohol Use Standard Drinks/Week Comments Yes 7 (1 standard drink = 0.6 oz pur e alcohol) Education Answer Date Recorded Are you interested in more education? Not on keith e 07/15/2022 Are you concerned about learning? Not on file 07/15/2022 No 07/15/2022 No 07/15/2022 Digital Access Answer Date Recorded No 08/14/2022 No 08/14/2022 Reliable internet access at home? Not on file 08/14/2022 Device with a working camera? Not on file Comments Unknown Sex and Gender Information Value Date Recorded Sex Assigned at Female 10/30/2019 8:50 AM EDT Legal Sex Female 10:31 AM EDT Gender Identity Female 10/30/2019 8:50 AM EDT Sexual Orientation Straight 10/30/2019 8: 50 AM EDT documented as of this encounter Plan of Treatment Upcoming Encounters Date Type Department Care Team (Late Contact Info) Description 10/16/2024 Procedure Pass [facility] [address] [place] [address] 11/24/2024 11:00 AM EDT Appointment [facility] [address] [place] [address] Shelly Lee PA-C [address] [place] [address] [email or web address] 01/14/2025 9:00 AM EDT Telemedicine [facility] [place]rology [address] [place] [address], [address] [place] [address], [address] [place] [address] Ellen Valencia MD, PhD [address] [place] [address] [email or web address] documented as of this encounter Visit Diagnoses Not on filedocumented in this encounter Care Teams Parts Salesperson Relationship Specialty Start Date End Date Roberta Castellano MD [address] [place] [address] [email or web address] PCP - General Internal Medicine 09/06/17 documented as of this encounter Additional Source Comments The information contained in this document represents components of the legal health record. It is not the complete legal health record.[facility]
--- OUTSIDE RECORDS SUMMARY | 2024-11-12 14:55 | XMS_ITS | Patient Health Record ---
Author Organization [facility], Address [address] [address] Care Team Providers Care Chemist Steroids Name Role Phone roberta daly Primary Care Provider Tammie Bond [phone] Allergies Allergen (clinical drug ingredient) Drug/Non Drug Allergy documented on EMR Reaction Allergy Type Onset Date Status rosuvastatin cognitive impairment Drug Allergy Active penicillin V penicillin V potassium Unknown Drug Allergy Active Reason For Referral No Information Medications Medication SIG (Take, Route, Frequency, Duration) [...] Status: Encounters Encounter Location Date Provider Diagnosis [facility], [address] [address] 04/25/2024 Tammie Delgadillo Plan Of Treatment No Information Insurance Providers Payer Name Payer Address Payer Phone Subscriber Number Group Number Insured Name Patient Relationship to Insured Coverage Start Date Coverage End Date MEDICARE B [address] [place] [address] [id number] Codi Zazueta Self - patient is the insured [employer] [address] [place] [address] [id number] Codi Zazueta Self - patient is the insured Medical (General) History Medical History History ICD Code hyperparathyroidism Hypothyroidism spinal stenosis osteoporosis benign neoplasm of parathyroid gland kidney disease vascular dementia Surgical History Surgery Date(Month/Year) parathyroidectomy 2009 lumbar fusion 2016 cataract eye surgery lens implants Section x2 thyroid biopsy cervical discectomy 2022 Hospitalization History Reason Date(Month/Year) chest pain 06/09
--- OUTSIDE RECORDS SUMMARY | 2024-11-12 14:56 | XMS_ITS | Encounter Summary ---
Author Organization [facility] Address [address] [place] [address] [place] [address] Phone Care Team Providers Care Quilt Sewer Name Role Phone Roberta Castellano MD Primary Care Provider [phone] Encounter Details Date Type Department Care Team (Late st Contact Info) Description 07/18/2024 Procedure Pass [facility] [address] [place] [address] Social History Tobacco Use Types Packs/Day Years [...] with a working camera? Not on file Intimate Partner Violence Answer Date R ecorded Are you denied basic needs s uch as food, clothing, or medical care? No 06/29/2024 In the past 12 months have y ou been in a relationship with a person who hurts, threatens, or tries to control you? No 06/29/2024 Are you denied basic needs s uch as food, clothing, or medical care? No 06/29/2024 In the past 12 months have y ou been in a relationship with a person who hurts, threatens, or tries to control you? No 06/29/2024 Comments Unknown Sex and Gender Information Value Date Recorded Sex Assigned at Female 10/30/2019 8:50 AM EDT Legal Sex Female 10:31 AM EDT Gender Identity Female 10/30/2019 8:50 AM EDT Sexual Orientation Straight 10/30/2019 8: 50 AM EDT documented as of this encounter Plan of Treatment Upcoming Encounters Date Type Department Care Team (Late st Contact Info) Description 10/16/2024 Procedure Pass [facility] [address] [place] [address] 11/24/2024 11:00 AM EDT Appointment [facility] [address] [place] [address] Shelly Lee PA-C [address] [place] [address] [email or web address] 01/14/2025 9:00 AM EDT Telemedicine [facility] Department of [place]rology [address] [place] [address], [address] [place] [address] Ellen Valencia MD, PhD [address] [place] [address] [email or web address] documented as of this encounter Visit Diagnoses Not on filedocumented in this encounter Additional Health Concerns Assessment Noted Time PHQ-2 Depression Total Score: 0 06/07/19 25 1:02 PM EDT documented as of this encounter Care Teams Quilt Sewer Relationship Specialty Start Date End Date Roberta Castellano MD [address] [place] [address] [email or web address] PCP - General Internal Medicine 09/06/17 documented as of this encounter Additional Source Comments The information contained in this document represents components of the legal health record. It is not the complete legal health record.[facility]
--- OUTSIDE RECORDS SUMMARY | 2024-11-12 14:56 | XMS_ITS ---
Author Name [facility] Organization Unknown Problems Problem Status Onset Date Problem Type Date of Resoluti on Source Cervical stenosis of spinal canal active 2022-02-25 ProblemAct [facility] Neck pain active 2022-02-25 ProblemAct [facility] Encounters Encounter Type Encounter Reason Primary Diagnosis Location Date Ambulatory NON HEALING WOUND NON HEALING WOUND [facility] 11/14/2023 Ambulatory Spinal stenosis, cervical region Vivian [facility] 02/25/2022 Care Team Organization Name Specialty Phone Email Start Date End [facility] RASHAD MARINO Primary Care 11/11/2023 02/12/20 24 [facility] RASHAD MARINO Primary Care 11/11/2023 [facility] [employer] [facility] RASHAD MARINO Primary Care 02/25/2022 [facility] RASHAD MARINO Primary Care 01/26/2022 023 [facility] NO PCP Primary Care 01/26/2022 04/02/2022
--- OUTSIDE RECORDS SUMMARY | 2024-11-12 14:56 | XMS_ITS | Encounter Summary ---
Author Organization [facility] Address [facility] [address] [place] [address] Phone Care Team Providers Care Spinning Bath Person Name Role Phone Roberta Castellano MD Primary Care Provider [phone] Encounter Details Date Type Department Care Team (Late st Contact Info) Description 10/17/2024 Orders Only [facility], Department of Neurology [address] [place] [address] Shelly Lee PA-C [address] [place] [address] [email or web address] Social History Tobacco Use Types Packs/Day Years [...] uch as food, clothing, or medical care? Deferred 07/27/2024 In the past 12 months have y ou been in a relationship with a person who hurts, threatens, or tries to control you? Deferred 07/27/2024 Are you denied basic needs s uch as food, clothing, or medical care? Deferred 07/27/2024 In the past 12 months have y ou been in a relationship with a person who hurts, threatens, or tries to control you? Deferred 07/27/2024 Comments Unknown Sex and Gender Information Value Date Recorded Sex Assigned at Female 10/30/2019 8:50 AM EDT Legal Sex Female 10:31 AM EDT Gender Identity Female 10/30/2019 8:50 AM EDT Sexual Orientation Straight 10/30/2019 8: 50 AM EDT documented as of this encounter Plan of Treatment Upcoming Encounters Date Type Department Care Team (Late st Contact Info) Description 10/16/2024 Procedure Pass [facility] [address] [place] [address] 11/24/2024 11:00 AM EDT Appointment [facility] [address] [place] [address] Shelly Lee PAGiuliaC [address] [place] [address] [email or web address] 01/14/2025 9:00 AM EDT Telemedicine [facility] Department of Neurology [address] [place] [address], [address] [place] [address] Ellen Valencia MD, PhD [address] [place] [address] [email or web address] documented as of this encounter Visit Diagnoses Not on filedocumented in this encounter Additional Health Concerns Assessment Noted Time PHQ-2 Depression Total Score: 0 06/07/19 25 1:02 PM EDT documented as of this encounter Care Teams Spinning Bath Person Relationship Specialty Start Date End Date Roberta Castellano MD NPI: [id number] [place] [address] [email or web address] PCP - General Internal Medicine 09/06/17 documented as of this encounter Additional Source Comments The information contained in this document represents components of the legal health record. It is not the complete legal health record.[facility]
--- OUTSIDE RECORDS SUMMARY | 2024-11-12 14:56 | XMS_ITS | Encounter Summary ---
Author Organization [facility] Address [address] [place] [address] Phone Care Team Providers Care Junior Project Manager Name Role Phone Roberta Castellano MD Primary Care Provider [phone] Reason for Visit * Reason Comments Medication Refill Encounter Details Date Type Department Care Team (Late st Contact Info) Description 08/01/2024 Refill [facility] Department of Neurology [address] [place] [address], [address] [place] [address] Joslyn Melo, STEVO [address] [address] [email or web address] Medication Refill Social History Tobacco Use Types Packs/Day Years [...] AM EDT documented as of this encounter Progress Notes * Nicol Varela - 08/01/2024 10:12 AM EDT At least one Rx below has no protocol and needs review. Rx Care Gap Status - Instructions for Clinical Staff (prescriber discretion applies): n/a Visit Info Last visit: 03/16/2024 Joslyn Melo, STEVO - Neurology [facility] MEM DISORDER WAC8 > Requested f/u: Not specified Upcoming visit: 08/08/2024 Joslyn Melo, STEVO - Neurology [facility] MEM DISORDER WAC8 ACTIONS TAKEN BY Nicol Varela - Renewal is at prescriber discretion. Rx(s) without protocol Renewal is at prescriber discretion. - donepezil HCl documented in this encounter Plan of Treatment Upcoming Encounters Date Type Department Care Team (Late st Contact Info) Description 10/16/2024 Procedure Pass [facility] [address] [place] [address] 11/24/2024 11:00 AM EDT Appointment [facility] [address] [place] [address] Shelly Lee PA-C 60 [place] [address] [email or web address] 01/14/2025 9:00 AM EDT Telemedicine [facility] Department of Neurology [address] [place] [address], [address]th [facility], [address] [place] [address] Ellen Valencia MD, PhD [address] [place] [address] [email or web address] documented as of this encounter Visit Diagnoses Diagnosis Mild cognitive impairment- Primary Mild cognitive impairment, so stated documented in this encounter Additional Health Concerns Assessment Noted Time PHQ-2 Depression Total Score: 0 06/07/19 25 1:02 PM EDT documented as of this encounter Care Teams Junior Project Manager Relationship Specialty Start Date End Date Roberta Castellano MD [address] [place] [address] [email or web address] PCP - General Internal Medicine 09/06/17 documented as of this encounter Additional Source Comments The information contained in this document represents components of the legal health record. It is not the complete legal health record.[facility]
--- OUTSIDE RECORDS SUMMARY | 2024-11-12 14:56 | XMS_ITS | Encounter Summary ---
Author Organization [facility] Address [address] [place] [address] [place] [address] Phone Care Team Providers Care Diamond Sizer And Grader Name Role Phone Roberta Castellano MD Primary Care Provider [phone] Encounter Details Date Type Department Care Team (Late st Contact Info) Description 07/24/2024 Procedure Pass [facility] [address] [place] [address] Social History Tobacco Use Types Packs/Day Years [...] st Contact Info) Description 10/16/2024 Procedure Pass [facility] [address] [place] [address] 11/24/2024 11:00 AM EDT Appointment [facility] [address] [place] [address] Shelly Lee PA-C [address] [place] [address] [email or web address] 01/14/2025 9:00 AM EDT Telemedicine [facility] Department of Neurology [address] [place] [address], [address] [place] [address] Ellen Valencia MD, PhD [address] [place] [address] [email or web address] documented as of this encounter Visit Diagnoses Not on filedocumented in this encounter Additional Health Concerns Assessment Noted Time PHQ-2 Depression Total Score: 0 06/07/19 25 1:02 PM EDT documented as of this encounter Care Teams Diamond Sizer And Grader Relationship Specialty Start Date End Date Roberta Castellano MD [address] [place] [address] [email or web address] PCP - General Internal Medicine 09/06/17 documented as of this encounter Additional Source Comments The information contained in this document represents components of the legal health record. It is not the complete legal health record.[facility]
--- OUTSIDE RECORDS SUMMARY | 2024-11-12 14:56 | XMS_ITS | Clinical Summary ---
Author Organization [facility] Address [address] [place] [phone] Phone Care Team Providers Care Cake Former Name Role Phone Roberta Castellano MD Primary Care Provider [phone] Allergies Active Allergy Reactions Criticality Noted Date Comments Penicillins Rash Low 10/04/2017 Medications ramipril (ALTACE) 10 MG capsule Take 10 mg by mouth daily. Active ascorbic acid, vitamin C, (ASCORBIC ACID WITH MIN HIPS) 500 MG tablet Take 500 mg by mouth 2 (two) times a day. Active BIOTIN ORAL Take 1 capsule by mouth 2 (two) times a day. Active VITAMIN B COMPLEX ORAL Take by mouth. Ac tive cholecalciferol , vitamin D3, (VITAMIN D3 ORAL) Take by mouth. Activ e Medication-Free Text Apply 6% topical gabapentin cream nightly to hands and feet. 1 Tube 1 0 Active Additional Information Patient not taking.Reported on 08/29/2024 Medication-Free Text Ps plus Active MAGNESIUM ORAL Take 500 mg by mouth daily. Active CALCIUM CITRATE ORAL Take 300 mg by mouth 2 (two) times a day. Active TURMERIC ORAL Take 1,000 mg by mouth 2 (two) times a day. Active donepeziL (ARICEPT) 10 MG tablet Take 1 tablet (10 mg total) by mouth nightly at bedtime. 45 tablet 3 5 Active traZODone (DESYREL) 50 MG tablet Take 1.5 tablets (75 mg total) by mouth nightly at bedtime. 45 tablet 3 4 Active traZODone (DESYREL) 50 MG tabletIndicatio ns:Mild cognitive impairment Take 1 tablet (50 mg total) by mouth nightly at bedtime. 30 tablet 5 5 Active Additional Information Patient not taking.Reported on 08/29/2024 traZODone (DESYREL) 50 MG tablet Take 0.5 tablets (25 mg total) by mouth nightly at bedtime. 30 tablet 3 5 Active Additional Information Patient not taking.Reported on 08/29/2024 Active Problems Problem Noted Date Diagnosed Date Mild late onset Alzheimer's dementia without behavioral disturbance, psychotic disturbance, mood disturbance, or anxiety 06/06/2024 Nontoxic uninodular goiter 12/28/2019 Assessment & Plan (12/28/2019 1:50 PM EDT): Based on the ultrasound that was post forearm on 12/26/2019 during ultrasound- guided fine-needle aspiration the patient only really has 1 nodule in the left mid pole if you can even correlated nodule because it was not very distinctive margins when that very cleared. It also appeared to be homogeneous with no surrounding thyroid parenchyma. In any case for argument sake we just proceeded with the biopsy and it was found to be benign. The patient has known about these thyroid nodule for over 16 years. She does not require any more serial ultrasound imaging this is obviously stable and not malignant. So at this point I am not going to give her a follow- up appointment. She was following with me for this condition only and she does not require further follow-up. Age-related osteoporosis wit hout current pathological fracture 09/05/2018 Assessment & Plan (09/05/2018 9:06 AM EDT): The patient has osteoporosis she has multiple risk factors for this condition I requested a DEXA scan but it was done at [facility] I do not have the report but at this point she informs me that she is actually following with Dr. Enmanuel jung for management and she has been getting Prolia injections at [facility] and this is completely fine she should continue to do so that I will no longer follow her for this condition. Nontoxic multinodular goiter Encounters Date Type Department Care Team Description 10/17/2024 Orders Only [facility], Department of Neurology [address] [place] [address] Shelly Lee PA-C 10/16/2024 Orders Only [facility], Department of Neurology [address] [place] [address] Shelly Lee PA-C Alzheimer's disease (Primary Dx) 10/11/2024 Telephone [facility], Department of Neurology [address] [place] [address] Yury Phillips MD Returning phone call 10/11/2024 Documentation [facility] Department of Neurology [address] [place] [address] Yury Phillips MD 10/10/2024 9:44 AM EDT - 10/10/2024 11:59 PM EDT Hospital Encounter [address] [address] Leora Masters PA-C Discharge Disposition: Home or Self Care 08/29/2024 9:45 AM EDT Telemedicine [facility] Department of Neurology [address] [facility], [address] [place] [address], [address] [place] [address] Joslyn Melo CNP Mild cognitive impairment (Primary Dx) 08/22/2024 9:52 AM EDT - 08/22/2024 11:59 PM EDT Hospital Encounter [address] [address] Leora Masters PA-C Discharge Disposition: Home or Self Care 08/22/2024 Procedure Pass [facility] [address] [place] [address] 08/22/2024 Telephone [facility], Department of Neurology [address] [place] [address] Bert Reyes MD, PhD Call back request 08/22/2024 Orders Only [facility], Department of Neurology [address] [place] [address] Leora Masters PA-C Alzheimer's disease (Primary Dx) 07/24/2024 Procedure Pass [facility] [address] [place] [address] from Last 3 Months Family History Medical History Relation Comments Obstructive sleep apnea Father Stroke Father Arthritis Mother Cancer Mother Coronary artery disease Mother Arthritis Sister COPD Sister Relation Status Comments Father Mother Sister Alive Social History Tobacco Use Types Packs/Day Years [...] Orientation Straight 10/30/2019 8: 50 AM EDT Last Filed Vital Signs Vital Sign Reading Time Taken Comments Blood Pressure 150/67 07/27/2024 11:30 AM EDT Pulse 54 07/27/2024 11:30 AM EDT Temperature 36.4 C (97.5 F) 07/27/2024 10:35 AM EDT Respiratory Rate 18 06/29/2024 10:13 AM EDT Oxygen Saturation 98% 06/06/2024 12:59 PM EDT Inhaled Oxygen Concentration - - Weight 45.4 kg (100 lb) 08/22/2024 9:55 AM EDT Height 156.4 cm (5' 1.58 ) 12/10/2019 4:09 PM ED T Body Mass Index 18.54 12/10/2019 4:09 PM EDT Plan of Treatment Upcoming Encounters Date Type Department Care Team (Late st Contact Info) Description 10/16/2024 Procedure Pass [facility] [address] [place] [address] 11/24/2024 11:00 AM EDT Appointment [facility] [address] [place] [address] Shelly Lee PA-C [address] [place] [address] [email or web address] 01/14/2025 9:00 AM EDT Telemedicine [facility] Department of Neurology [address] [place] [address], [address] [place] [address] Ellen Valencia MD, PhD [address] [place] [id number] [email or web address] Health Maintenance Due Date Last Done Comments LIPID PANEL 1945 HEPATITIS C SCREENING 1964 OSTEOPOROSIS SCREENING INITIAL (ONE-TIME) 2011 ZOSTER VACCINES (2 of 2) 01/28/2021 12/03/2020 RSV VACCINE (1 - 1-dose 75+ series) 2021 COVID-19 VACCINE ( - season) 2023 INFLUENZA VACCINE (#1) 2024 4, 12/10/2022, 04/03/2021, Additional history exists CREATININE LEVEL 06/06/2025 06/06/2024, 07/14/2023 DEPRESSION SCREENING 06/06/2025 06/06/2024 POTASSIUM LEVEL 06/06/2025 06/06/2024, 07/14/2023 SMOKING Hx and SMOKELESS TOBACCO SCREENING 07/27/2025 07/27/2024 Adult Td,Tdap Booster 09/02/2032 09/02/2022 PNEUMOCOCCAL VACCINES (50+ years) Completed 01/12/2024 HEPATITIS A VACCINES Aged Out No long er eligible based on patient's age to complete this topic HIB VACCINES Aged Out No longer eligi ble based on patient's age to complete this topic MENINGOCOCCAL VACCINES (ACWY) Aged Out No longer eligible based on patient's age to complete this topic MENINGOCOCCAL VACCINES (B) Aged Out N o longer eligible based on patient's age to complete this topic Medical Devices Not on file Procedures Procedure Name Priority Date/Time Associated Diagnosis Comments MRI BRAIN (NEURO DEMENTIA) WITHOUT CONTRAST Routine 10/10/2024 10:42 AM EDT Alzheimer's disease MRI BRAIN (MEMORY LOSS) WITHOUT CONTRAST Routine 08/22/2024 10:37 AM EDT Alzheimer's disease COMPREHENSIVE METABOLIC PANEL Routine 06/06/2024 2:38 PM EDT Mild late onset Alzheimer's dementia without behavioral disturbance, psychotic disturbance, mood disturbance, or anxiety from Last 3 Months or Most Recently Relevant to Health Maintenance Results * MRI BRAIN (NEURO DEMENTIA) WITHOUT CONTRAST (10/10/2024 10:42 AM EDT) [facility] OPERATOR COMMENT Severe ARIA-H, slightly progressed since August 22, 2024. [facility] Anatomical Region Laterality Modality Head Magnetic Resonan ce 10/10/2024 2:03 PM EDT Impressions 10/10/2024 4:41 PM EDT 1. No new ARIA-E findings. The edema seen on prior MRI in the right frontal lobe has resolved. 2. 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 A clinically significant result was initiated on 10/10/2024 4:40 PM, Message ID [id number]. ATTESTATION: Placido Dorsey, as teaching physician have reviewed the images, if any, for this patient's exam, and if necessary, have edited the report originally created by Jane Vallejo. Narrative 10/10/2024 4:41 PM EDT MRI BRAIN (NEURO DEMENTIA) WITHOUT CONTRAST Referring clinician's provided indication for this examination in [facility]: * Memory Loss; 1 month f/u MRI to assess stability of severe ARIA-H and resolution of ARIA-E (s/p 2 donanemab infusions now permanently d/c) TECHNIQUE: MRI BRAIN (NEURO DEMENTIA) WITHOUT CONTRAST Multi-sequence, multi-planar MRI of the brain was performed WITHOUT intravenous contrast. MRI Strength: 3T COMPARISON: Multiple prior brain MRIs, most recent 08/22/2024. FINDINGS: ARIA-E Assessment: Date of Baseline Scan: 11/27/2023 Cerebral Edema and/or Sulcal Effusion: Interval resolution of previously seen edema in the right frontal operculum (). The previously noted area of apparent T2 hyperintensity along the cerebellar vermis is also no longer visualized on the present exam. ARIA-E Severity Scale: None (improved compared to the prior exam) ARIA-H Assessment: Foci of Susceptibility: Present Superficial Siderosis: Present Baseline MRI: 11/27/2023 Baseline Microhemorrhages GRE: 0 Baseline Microhemorrhages SWI: 0 New Microhemorrhages Since Baseline GRE: Since baseline greater than 9, with 2 new microhemorrhages in the right superior frontal gyrus (image 85, 26 series 15) since the prior exam dated 08/22/2024. New Microhemorrhages Since Baseline SWI: Since baseline greater than 9, with 2 new microhemorrhages in the right superior frontal gyrus (image 49 , 47 series 11) since the prior exam dated 08/22/2024. Focal Areas of Superficial Siderosis: Paramedian right frontal lobe, the right frontal operculum and the left frontal lobe similar to prior. ARIA-H Severity Scale: Severe (>9 new microhemorrhages and/or >2 new area of superficial siderosis) Brain Parenchyma: No additional significant change in the appearance of the brain parenchyma. Ventricular System and Extra-Axial Spaces: No evidence of midline shift or hydrocephalus. Similar left middle cranial fossa/sphenoid bone signal abnormality, which is better evaluated on the prior contrast-enhanced MR brain exam dated 11/27/2023. Extracranial Structures: Unchanged Procedure Note Placido Kwok MD, PhD - 10/10/2024 MRI BRAIN (NEURO DEMENTIA) WITHOUT CONTRAST Referring clinician's provided indication for this examination in [facility]: *Memory Loss; 1 month f/u MRI to assess stability of severe ARIA-H andresolution of ARIA-E (s/p 2 donanemab infusions now permanently d/c) TECHNIQUE: MRI BRAIN (NEURO DEMENTIA) WITHOUT CONTRAST Multi-sequence, multi-planar MRI of the brain was performed WITHOUTintravenous contrast. MRI Strength: 3T COMPARISON: Multiple prior brain MRIs, most recent 08/22/2024. FINDINGS: ARIA-E Assessment: Date of Baseline Scan: 11/27/2023 Cerebral Edema and/or Sulcal Effusion: Interval resolution of previouslyseen edema in the right frontal operculum (). The previously notedarea of apparent T2 hyperintensity along the cerebellar vermis is also nolonger visualized on the present exam. ARIA-E Severity Scale: None (improved compared to the prior exam) ARIA-H Assessment: Foci of Susceptibility: Present Superficial Siderosis: Present Baseline MRI: 11/27/2023 Baseline Microhemorrhages GRE: 0 Baseline Microhemorrhages SWI: 0 New Microhemorrhages Since Baseline GRE: Since baseline greater than 9,with 2 new microhemorrhages in the right superior frontal gyrus (image 85,26 series 15) since the prior exam dated 08/22/2024. New Microhemorrhages Since Baseline SWI: Since baseline greater than 9,with 2 new microhemorrhages in the right superior frontal gyrus (image 49, 47 series 11) since the prior exam dated 08/22/2024. Focal Areas of Superficial Siderosis: Paramedian right frontal lobe, theright frontal operculum and the left frontal lobe similar to prior. ARIA-H Severity Scale: Severe (>9 new microhemorrhages and/or >2 new areaof superficial siderosis) Brain Parenchyma: No additional significant change in the appearance ofthe brain parenchyma. Ventricular System and Extra-Axial Spaces: No evidence of midline shift orhydrocephalus. Similar left middle cranial fossa/sphenoid bone signal abnormality, whichis better evaluated on the prior contrast-enhanced MR brain exam dated11/27/2023. Extracranial Structures: Unchanged IMPRESSION: 1. No new ARIA-E findings. The edema seen on prior MRI in the rightfrontal lobe has resolved. 2. 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 A clinically significant result was initiated on 10/10/2024 4:40 PM,Message ID [id number]. ATTESTATION: Placido Dorsey, as teaching physician have reviewed theimages, if any, for this patient's exam, and if necessary, have edited thereport originally created by Jane Vallejo. us Leora Masters PA-C IMG MR HEAD/NECK Final Res ult * MRI BRAIN (MEMORY LOSS) WITHOUT CONTRAST (08/22/2024 10:37 AM EDT) Anatomical Region Laterality Modality Head Magnetic Resonan ce 08/22/2024 10:4 0 AM EDT Impressions 08/22/2024 12:49 PM EDT Progressive now severe ARIA-H and mild to moderate ARIA-E. Discussed with Dr. Bert Reyes at 12:45P on 08/22/24. Narrative 08/22/2024 12:49 PM EDT MRI BRAIN (MEMORY LOSS) WITHOUT CONTRAST Referring clinician's provided indication for this examination in [facility]: * Memory Loss; has known ARIA in the setting of donanemab use TECHNIQUE: MRI BRAIN (MEMORY LOSS) WITHOUT CONTRAST Multi-sequence, multi-planar MRI of the brain was performed WITHOUT intravenous contrast. MRI Strength: 3T COMPARISON: Prior brain MRIs, most recently 07/23/2024 FINDINGS: ARIA-E Assessment: Date of Baseline Scan: 11/27/2023. Cerebral Edema and/or Sulcal Effusion: Present in the right frontal operculum (12:128). There is also a new area of apparent T2 hyperintensity along the cerebellar vermis measures near the fourth ventricle that could be artifactual. Both lesions are less than 5cm. ARIA-E Severity Scale: Mild to moderate depending on the veracity of the cerebellar lesion. ARIA-H Assessment: Foci of Susceptibility: Present Superficial Siderosis: Present Baseline MRI: 11/27/2023. Baseline Microhemorrhages GRE: 0 Baseline Microhemorrhages SWI: 0 New Microhemorrhages Since Baseline GRE: >9 New Microhemorrhages Since Baseline SWI: >9 scattered bilaterally Focal Areas of Superficial Siderosis: Paramedian right frontal lobe, similar to prior, with a new area in the right frontal operculum. In retrospect there is a focus of possible sulcal susceptibility in the left frontal lobe which was present on the baseline exam (9:48). ARIA-H Severity Scale: Severe (>9 new microhemorrhages and/or >2 new area of superficial siderosis) Brain Parenchyma: See above regarding ARIA. No other significant change in appearance of the brain parenchyma. Ventricular System and Extra-Axial Spaces: No evidence of midline shift or hydrocephalus. Similar left middle cranial fossa/sphenoid bone signal abnormality, which is better evaluated on the prior contrast-enhanced MR brain exam. Extracranial Structures: The extracranial structures are not significantly changed. Procedure Note AbundioJayjay MD - 08/22/2024 MRI BRAIN (MEMORY LOSS) WITHOUT CONTRAST Referring clinician's provided indication for this examination in [facility]: *Memory Loss; has known ARIA in the setting of donanemab use TECHNIQUE: MRI BRAIN (MEMORY LOSS) WITHOUT CONTRAST Multi-sequence, multi-planar MRI of the brain was performed WITHOUTintravenous contrast. MRI Strength: 3T COMPARISON: Prior brain MRIs, most recently 07/23/2024 FINDINGS: ARIA-E Assessment: Date of Baseline Scan: 11/27/2023. Cerebral Edema and/or Sulcal Effusion: Present in the right frontaloperculum (12:128). There is also a new area of apparent T2 hyperintensityalong the cerebellar vermis measures near the fourth ventricle that couldbe artifactual. Both lesions are less than 5cm. ARIA-E Severity Scale: Mild to moderate depending on the veracity of thecerebellar lesion. ARIA-H Assessment: Foci of Susceptibility: Present Superficial Siderosis: Present Baseline MRI: 11/27/2023. Baseline Microhemorrhages GRE: 0 Baseline Microhemorrhages SWI: 0 New Microhemorrhages Since Baseline GRE: >9 New Microhemorrhages Since Baseline SWI: >9 scattered bilaterally Focal Areas of Superficial Siderosis: Paramedian right frontal lobe,similar to prior, with a new area in the right frontal operculum. Inretrospect there is a focus of possible sulcal susceptibility in the leftfrontal lobe which was present on the baseline exam (9:48). ARIA-H Severity Scale: Severe (>9 new microhemorrhages and/or >2 new areaof superficial siderosis) Brain Parenchyma: See above regarding ARIA. No other significant change inappearance of the brain parenchyma. Ventricular System and Extra-Axial Spaces: No evidence of midline shift orhydrocephalus. Similar left middle cranial fossa/sphenoid bone signal abnormality, whichis better evaluated on the prior contrast-enhanced MR brain exam. Extracranial Structures: The extracranial structures are not significantlychanged. IMPRESSION: Progressive now severe ARIA-H and mild to moderate ARIA-E. Discussed with Dr. Bert Reyes at 12:45P on 08/22/24. Leora Masters PA-C IMG MR HEAD/NECK Final Res ult * (ABNORMAL) Comprehensive metabolic panel (06/06/2024 2:38 PM EDT) SODIUM 141 136 - 145 mmol/L [facility] POTASSIUM 4.1 3.4 - 5.1 mmol/L [facility] CHLORIDE 103 98 - 107 mmol/L [facility] CO2 28 22 - 31 mmol/L [facility] BUN 21 6 - 23 mg/dL [facility] CREATININE 1.11 0.50 - 1.20 mg/dL [facility] GLUCOSE 99 70 - 100 mg/dL [facility] ALBUMIN 4.6 3.5 - 5.2 g/dL [facility] TOTAL PROTEIN 7.7 6.4 - 8.3 g/dL [facility] CALCIUM 9.6 8.8 - 10.7 mg/dL [facility] ALKALINE PHOSPHATASE 71 35 - 130 U/L [facility] TOTAL BILIRUBIN 1.0 0.0 - 1.0 mg/dL [facility] AST 38 10 - 50 U/L [facility] ALT 27 10 - 50 U/L [facility] GLOBULIN 3.1 2.2 - 4.2 g/dL [facility] EGFR 51(L) >59 mL/min/1.7 3m2 [facility] Comment:Estimated glomerular filtration rate calculated using the CKD-EPI refit equation. ANION GAP 10 7 - 17 mmol/L [facility] Blood 06/06/2024 2:38 PM EDT 06/06/2024 2:57 PM EDT Xander Cotton MD LAB BLOOD ORDERABLES Final R esult [facility] [address] [place] [address] from Last 3 Months or Most Recently Relevant to Health Maintenance Insurance [employer] MEDICARE PART A & B [employer] SUPP[employer]MENT MEDICARE PART A & B [employer] MEDICARE PART A & B [employer] MEDICARE PART A & B [employer] MEDICARE PART A & B [employer] MEDICARE PART A & B [employer] MEDICARE PART A & B [employer] MEDICARE PART A & B [employer] MEDICARE PART A & [place] [address] [place] [address] MEDEX SUPPLEMENT MEDICARE PART A & B Care Teams Cake Former Relationship Specialty Start Date End Date Roberta Castellano MD [address] [place] [address] [email or web address] PCP - General Internal Medicine 09/06/17 Additional Source Comments The information contained in this document represents components of the legal health record. It is not the complete legal health record.[facility]
--- OUTSIDE RECORDS SUMMARY | 2024-11-12 14:56 | XMS_ITS | Clinical Summary ---
Author Organization [facility] Address [address] [place] [phone] Phone Care Team Providers Care Basket Weaver Name Role Phone Elsi Castellano MD Primary Care Provider [phone] Social History Tobacco Use Types Packs/Day Years Used Date Smoking Tobacco: Never Smokeless Tobacco: Never Comments Unknown Sex and Gender Information Value Date Recorded Sex Assigned at Not on file Legal Sex Female 2:40 AM EST Gender Identity Not on file Sexual Orientation Not on file Obstetrics History Plan of Treatment Health Maintenance Due Date Last Done Comments Zoster Vaccines (2 of 2) 01/28/2021 12/03/2020 RSV Immunization Adult Patients (1 - 1-dose 75+ series) 2021 Cholesterol Screening (Lipid Panel) 02/21/2022 Falls Risk Assessment 02/21/2022 Hepatitis C Screening 02/21/2022 Medicare Annual Wellness Visit 02/21/2022 Osteoporosis Screening (Bone Density Screening) 02/21/2022 Social Influencers of Health Screening 02/21/2022 COVID-19 Vaccine ( season) 2023 Depression Screening 03/21/2024 Influenza Vaccine (#1) 2024 , 12/10/2022, 04/03/2021, Additional history exists Hypertension/CHF/CAD Annual BMP Blood Test 06/06/2025 06/06/2024, 07/14/2023 DTaP,Tdap,and Td Vaccines (2 - Td or Tdap) 09/02/2032 09/02/2022 Pneumococcal Vaccine: 50+ Years Completed 01/12/2024 HIB Vaccines Aged Out No longer eligi ble based on patient's age to complete this topic HPV Vaccines Aged Out No longer eligi ble based on patient's age to complete this topic Hepatitis A Vaccines Aged Out No long er eligible based on patient's age to complete this topic Hepatitis B Vaccines Aged Out No long er eligible based on patient's age to complete this topic IPV Vaccines Aged Out No longer eligi ble based on patient's age to complete this topic MMR Vaccines Aged Out No longer eligi ble based on patient's age to complete this topic Meningococcal ACWY Vaccine Aged Out N o longer eligible based on patient's age to complete this topic Meningococcal B Vaccine Aged Out No l onger eligible based on patient's age to complete this topic RSV Immunization Patients Under 20 months Aged Out No longer eligible based on patient's age to complete this topic Varicella Vaccines Aged Out No longer eligible based on patient's age to complete this topic Insurance MEDICARE Care Teams Basket Weaver Relationship Specialty Start Date End Date Elsi Castellano MD PCP - General Internal Medicine 02/23/18
--- OUTSIDE RECORDS SUMMARY | 2024-11-12 14:56 | XMS_ITS | Encounter Summary ---
Author Organization [facility] Address [address] [place] [address] [place] [phone] Phone Care Team Providers Care Cabinet Abrasive Sandblaster Name Role Phone Roberta Castellano MD Primary Care Provider [phone] Encounter Details Date Type Department Care Team (Late st Contact Info) Description 08/22/2024 Procedure Pass [facility] [address] [place] [address] Social History Tobacco Use Types Packs/Day Years [...] st Contact Info) Description 10/16/2024 Procedure Pass [facility] [address] [place] [address] 11/24/2024 11:00 AM EDT Appointment [facility] [address] [place] [address] Shelly Lee PA-C [address] [place] [address] [email or web address] 01/14/2025 9:00 AM EDT Telemedicine [facility] Department of Neurology [address] [place] [address], [address] [place] [address] Ellen Valencia MD, PhD [address] [place] [id number] [email or web address] documented as of this encounter Visit Diagnoses Not on filedocumented in this encounter Additional Health Concerns Assessment Noted Time PHQ-2 Depression Total Score: 0 06/07/19 25 1:02 PM EDT documented as of this encounter Care Teams Cabinet Abrasive Sandblaster Relationship Specialty Start Date End Date Roberta Castellano MD [address] [place] [phone] [email or web address] PCP - General Internal Medicine 09/06/17 documented as of this encounter Additional Source Comments The information contained in this document represents components of the legal health record. It is not the complete legal health record.[facility]
== END 2024-11-12 15:08 | disposition home or self-care (01) ==
LOC: HO.HNS 13:38
PROVIDERS: PCP Internal Medicine; Visit Provider Physician Assistant
DX: M54.42 Lumbago with sciatica, left side (principal)
CPT/HCPCS: 99204

== ENCOUNTER → 2024-11-12 13:38 | Outpatient (BNVA) | payer MEDICARE, SELFPAY | PROVIDERS: PCP Internal Medicine; Visit Provider Physician Assistant | DX: M54.42 Lumbago with sciatica, left side (principal) | CPT/HCPCS: 99202 ==